=== PATIENT | female | born 1940 | race Caucasian/White ===

== ENCOUNTER 2017-07-27 13:50 | Inpatient (IN) | payer MEDICARE, OTHER ==
[2017-07-27] VITALS (7 sets, daily range): BP systolic 98–136; BP diastolic 56–76
[~2017-07-27] VITALS: Ht 160 cm; Wt 113.6 kg
[~2017-07-27 13:50] MED LIST: ACET-812 PO; ALLO300T8 PO; BISO5TAB7 PO; CALC600T12 PO; CHOL400T57 PO; INSU100C4 SQ; INSU100C7 SQ; NIA500ERT PO; OMEG1CAP81 PO; SOY155CA; WARF5TAB7 PO
[2017-07-27 14:12] LABS: BASOPHILS # (AUTO) 0.1 X10'3 (0-0.2); BASOPHILS % (AUTO) 0.5 % (0-1); EOSINOPHILS # (AUTO) 0.2 X10'3 (0-0.9); HEMATOCRIT 43.3 % (35.0-45.0); HEMOGLOBIN 14.5 g/dl (12.0-16.0); LYMPHOCYTES # (AUTO) 2.5 X10'3 (1.1-4.8); LYMPHOCYTES % (AUTO) 20.2 % (21-51); MEAN CORPUSCULAR HEMOGLOBIN 32.5 PG (27.0-31.0); MEAN CORPUSCULAR HGB CONC 33.5 % (33.0-36.5); MEAN PLATELET VOLUME 8.9 FL (7.4-10.4); MONOCYTES # (AUTO) 0.8 X10'3 (0-0.9); MONOCYTES % (AUTO) 6.5 % (2-12); NEUTROPHILS # (AUTO) 8.6 X10'3 (1.8-7.7); NEUTROPHILS % (AUTO) 70.8 % (42-75); PLATELET COUNT 236 X10'3 (140-440); RED BLOOD COUNT 4.46 X10'6 (4.20-5.60); RED CELL DISTRIBUTION WIDTH 15.2 % (11.5-14.5); WHITE BLOOD COUNT 12.2 X10'3 (4.5-11.0)
[2017-07-27 14:21] LABS: INR 1.1 INR; PARTIAL THROMBOPLASTIN TIME 28 SECONDS (22-32); PROTHROMBIN TIME 11.2 SECONDS (9.0-12.0)
[2017-07-27 14:39] LABS: ALANINE AMINOTRANSFERASE 12 U/L (12-78); ALBUMIN 2.9 G/DL (3.4-5.0); ALBUMIN/GLOBULIN RATIO 0.7 (1.1-1.5); ALKALINE PHOSPHATASE 64 IU/L (46-116); ANION GAP 10 (8-16); ASPARTATE AMINO TRANSFERASE 15 U/L (10-37); BLOOD UREA NITROGEN 26 MG/DL (7-18); BUN/CREATININE RATIO 21.7 (6.6-38.0); CHLORIDE 102 MMOL/L (99-107); GLUCOSE 208 MG/DL (70-104); POTASSIUM 3.8 MMOL/L (3.5-5.1); SODIUM 140 MMOL/L (135-145); TOTAL CARBON DIOXIDE 28.1 MMOL/L (24-32); eGFR 44 ML/MIN
[2017-07-27 14:41] LABS: TOTAL CELLS COUNTED 100
[2017-07-27 14:42] LABS: PLATELET ESTIMATE NORMAL
[2017-07-27 14:49] LABS: ETHANOL < 0.010 GM/DL (0.0-0.010); MAGNESIUM 1.4 MG/DL (1.5-2.4); PHOSPHORUS 3.7 MG/DL (2.3-4.5)
[2017-07-27 14:50] LABS: ACETAMINOPHEN < 2.0 UG/ML (10-30)
[2017-07-27 16:16] LABS: CLARITY,URINE Cloudy (Clear); COLOR,URINE Dark Yellow (Yellow); GLUCOSE, URINE Negative (Neg); KETONES,URINE Trace mg/dl (Neg); LEUKOCYTE ESTERASE ,URINE Large (Neg); NITRITES, URINE Negative (Neg); OCCULT BLOOD,URINE Negative (Neg); PH,URINE 5.5 (4.8-8.0); PROTEIN,URINE 30 mg/dl (Neg)
[2017-07-27 16:17] LABS: UA COLLECTION TYPE FOLEY CATH
[2017-07-27] MEDS ORDERED: mag hydrox/Alum hydrox/simeth 30ml oral suspension PO PRN (16:20)
[2017-07-27] MEDS ORDERED: aspirin 81mg tablet.DR PO ONE (16:20)
[2017-07-27] MEDS ORDERED: acetaminophen 325mg tablet PO PRN ×2 (16:20→18:35)
[2017-07-27] MEDS ORDERED: ondansetron/PF 4mg/2ml inj IV PRN ×2 (16:20→18:35)
[2017-07-27] MEDS ORDERED: magnesium hydroxide 30ml (MOM) UD suspension PO PRN ×2 (16:20→18:35)
[2017-07-27 16:25] LABS: URINE AMPHETAMINE SCREEN NEGATIVE (Neg); URINE BARBITUATE SCREEN NEGATIVE (Neg); URINE BENZODIAZEPINES SCREEN NEGATIVE (Neg); URINE CANNABINOID SCREEN NEGATIVE (Neg); URINE COCAINE SCREEN NEGATIVE (Neg); URINE METHADONE SCREEN NEGATIVE (Neg); URINE OPIATE SCREEN NEGATIVE (Neg); URINE PHENCYCLIDINE SCREEN NEGATIVE (Neg)
[2017-07-27 16:26] LABS: BACTERIA,URINE 4+ /HPF (Neg); MUCUS STRANDS MANY /LPF (Neg); RBC,URINE NONE SEEN /HPF (0-2); SQUAMOUS EPITHELIAL CELL,UR MODERATE /LPF (FEW); WBC,URINE 50-100 /HPF (0-4)
[2017-07-27 16:28] LABS: WBC CLUMPS,URINE FEW /HPF (NEGATIVE)
[2017-07-27] MEDS: normal saline 1000ml 1,000 ML IV SCH (16:51)
[2017-07-27] MEDS ORDERED: DOPamine 400mg/D5W 250ml 250 ML IV ONE (17:18)
[2017-07-27] MEDS ORDERED: NORMAL SALINE IV SCH (17:50)
[2017-07-27] MEDS ORDERED: ISOPROTERENOL IV SCH (17:50)
[2017-07-27] MEDS ORDERED: magnesium 2GM in 50ml NS 50 ML IV PRN (18:35)
[2017-07-27] MEDS ORDERED: Neutra Phos packet PO PRN (18:35)
[2017-07-27] MEDS ORDERED: ipratropium/albuterol 3ml nebule NEB PRN (18:35)
[2017-07-27] MEDS ORDERED: magnesium Cl slow-release 64mg tablet PO PRN (18:35)
[2017-07-27] MEDS ORDERED: potassium Cl 20 mEq SR tablet PO PRN ×2 (18:35)
[2017-07-27] MEDS ORDERED: DOPamine 400mg/D5W 250ml 250 ML IV SCH (18:35)
[2017-07-27] MEDS ORDERED: sodium phosphate inj. 30 MMOL in dextrose 5%-water 250 ML IV PRN (18:35)
[2017-07-27] MEDS ORDERED: sodium phosphate inj. 15 MMOL in dextrose 5%-water 150 ML IV PRN (18:35)
[2017-07-27] MEDS ORDERED: magnesium 4gm in 100ml NS 100 ML IV PRN (18:35)
[2017-07-27 19:46] LABS: OXYGEN SATURATION (MIXED VEN) 69.6 % (60-80); PO2 MIXED VENOUS (TEMP COR) 35.2 mmHg (35-46)
[2017-07-27] MEDS ORDERED: glucagon, human recombinant 1mg kit SUBCUT PRN (20:40)
[2017-07-27] MEDS ORDERED: dextrose 50%-water 50ml dispensing syringe IV PRN ×2 (20:40)
[2017-07-27] MEDS ORDERED: MESSAGE TO PHARMACY PO ONE (20:40)
[2017-07-27] MEDS ORDERED: dextrose ORAL solution 15 GM/59 ML bottle PO PRN ×2 (20:40)
[2017-07-27] MEDS: Insulin Detemir pen SQ SCH (21:00)
[2017-07-27] MEDS: niacin 500mg ER (Niaspan) tablet PO SCH (21:00)
[2017-07-27] MEDS ORDERED: Insulin Detemir pen SQ SCH (21:00)
[2017-07-27 21:15] LABS: HEMOGLOBIN A1C 6.7 % (4.5-6.2)
[2017-07-27] MEDS ORDERED: LIDOcaine 0.5% W/epiNEPHrine 1:200,000 50ml vial IJ ONE (21:25)
[2017-07-27] MEDS ORDERED: midazolam 2 mg/2 ml injection ONE (21:58)
[2017-07-28] VITALS (26 sets, daily range): BP systolic 78–143; BP diastolic 37–85
[2017-07-28] MEDS ORDERED: propofol inj 20 ML IV ONE ×2 (00:21)
[2017-07-28] MEDS ORDERED: ceFAZolin 1000mg inj ONE (00:21)
[2017-07-28] MEDS ORDERED: normal saline 500ml IV soln 500 ML IV ONE (02:10)
[2017-07-28] MEDS: normal saline 1000ml 1,000 ML IV SCH ×3 (02:44→21:00)
[2017-07-28] MEDS: insulin Lispro (HumaLOG) vial - multi-dose SQ SCH ×3 (02:48→21:23)
[2017-07-28 03:02] LABS: BASOPHILS # (AUTO) 0.1 X10'3 (0-0.2); BASOPHILS % (AUTO) 0.4 % (0-1); EOSINOPHILS # (AUTO) 0.2 X10'3 (0-0.9); EOSINOPHILS % (AUTO) 1.3 % (0-6); HEMATOCRIT 37.9 % (35.0-45.0); HEMOGLOBIN 12.8 g/dl (12.0-16.0); LYMPHOCYTES # (AUTO) 1.2 X10'3 (1.1-4.8); LYMPHOCYTES % (AUTO) 7.3 % (21-51); MEAN CORPUSCULAR HEMOGLOBIN 32.9 PG (27.0-31.0); MEAN CORPUSCULAR HGB CONC 33.8 % (33.0-36.5); MEAN CORPUSCULAR VOLUME 97.5 FL (78-98); MEAN PLATELET VOLUME 8.9 FL (7.4-10.4); MONOCYTES # (AUTO) 1.2 X10'3 (0-0.9); MONOCYTES % (AUTO) 7.4 % (2-12); NEUTROPHILS # (AUTO) 13.8 X10'3 (1.8-7.7); NEUTROPHILS % (AUTO) 83.6 % (42-75); PLATELET COUNT 208 X10'3 (140-440); RED BLOOD COUNT 3.89 X10'6 (4.20-5.60); RED CELL DISTRIBUTION WIDTH 15.3 % (11.5-14.5); WHITE BLOOD COUNT 16.5 X10'3 (4.5-11.0)
[2017-07-28 03:27] LABS: ALBUMIN 2.6 G/DL (3.4-5.0); ANION GAP 8 (8-16); BLOOD UREA NITROGEN 31 MG/DL (7-18); BUN/CREATININE RATIO 22.3 (6.6-38.0); CALCIUM 8.3 MG/DL (8.5-10.1); CHLORIDE 103 MMOL/L (99-107); CREATININE 1.39 MG/DL (0.40-0.90); GLUCOSE 234 MG/DL (70-104); POTASSIUM 3.9 MMOL/L (3.5-5.1); SODIUM 141 MMOL/L (135-145); TOTAL CARBON DIOXIDE 30.1 MMOL/L (24-32); eGFR 37 ML/MIN
[2017-07-28] MEDS ORDERED: allopurinol 300 MG tablet PO SCH (08:00)
[2017-07-28] MEDS ORDERED: acetaminophen 325mg tablet PO PRN (08:00)
[2017-07-28] MEDS ORDERED: [UNRECOGNIZED DRUG - OTHER] PO SCH (08:00)
[2017-07-28] MEDS ORDERED: OMEGA 3 FATTY ACIDS PO SCH (08:00)
[2017-07-28] MEDS: acetaminophen 325mg tablet PO PRN (08:07)
[2017-07-28] MEDS: aspirin 81mg tablet.DR PO SCH (08:07)
[2017-07-28] MEDS: enoxaparin 40mg/0.4ml syringe SUBCUT SCH (08:08)
[2017-07-28 08:23] LABS: MAGNESIUM 1.6 MG/DL (1.5-2.4)
[2017-07-28] MEDS: calcium carbonate 500mg chew tablet PO SCH ×2 (09:59→15:07)
[2017-07-28] MEDS ORDERED: BISO10TA PO (10:57)
[2017-07-28] MEDS ORDERED: albumin (Human) 5% 250 ML IV solution IV STA (11:47)
[2017-07-28] MEDS: levoFLOXACIN-Levaquin 500mg/D5 100 ML IV SCH (12:22)
[2017-07-28 12:55] LABS: OXYGEN SATURATION (MIXED VEN) 77.6 % (60-80); PO2 MIXED VENOUS (TEMP COR) 41.9 mmHg (35-46)
[2017-07-28] MEDS ORDERED: DOPamine 400mg/D5W 250ml 250 ML IV SCH ×2 (15:30→18:35)
[2017-07-28] MEDS: hydrocortisone sod succ/PF 100mg/2ml inj. IV SCH (16:44)
[2017-07-28] MEDS: Insulin Detemir pen SQ SCH (21:00)
[2017-07-28] MEDS: niacin 500mg ER (Niaspan) tablet PO SCH ×2 (21:01→21:31)
[2017-07-29] VITALS (24 sets, daily range): BP systolic 121–183; BP diastolic 63–102
[2017-07-29] MEDS: hydrocortisone sod succ/PF 100mg/2ml inj. IV SCH ×3 (00:51→16:55)
[2017-07-29 03:31] LABS: BASOPHILS % (AUTO) 0 % (0-1); EOSINOPHILS # (AUTO) 0.1 X10'3 (0-0.9); EOSINOPHILS % (AUTO) 0.7 % (0-6); HEMATOCRIT 36.4 % (35.0-45.0); LYMPHOCYTES # (AUTO) 0.8 X10'3 (1.1-4.8); LYMPHOCYTES % (AUTO) 7.4 % (21-51); MEAN CORPUSCULAR HEMOGLOBIN 32.5 PG (27.0-31.0); MEAN CORPUSCULAR HGB CONC 32.9 % (33.0-36.5); MEAN CORPUSCULAR VOLUME 98.6 FL (78-98); MEAN PLATELET VOLUME 8.5 FL (7.4-10.4); MONOCYTES # (AUTO) 0.5 X10'3 (0-0.9); MONOCYTES % (AUTO) 4.5 % (2-12); NEUTROPHILS # (AUTO) 9.2 X10'3 (1.8-7.7); NEUTROPHILS % (AUTO) 87.4 % (42-75); PLATELET COUNT 216 X10'3 (140-440); RED BLOOD COUNT 3.69 X10'6 (4.20-5.60); RED CELL DISTRIBUTION WIDTH 15.2 % (11.5-14.5); WHITE BLOOD COUNT 10.6 X10'3 (4.5-11.0)
[2017-07-29 03:46] LABS: ALBUMIN 2.8 G/DL (3.4-5.0); ANION GAP 9 (8-16); BLOOD UREA NITROGEN 29 MG/DL (7-18); BUN/CREATININE RATIO 26.4 (6.6-38.0); CALCIUM 8.2 MG/DL (8.5-10.1); CHLORIDE 106 MMOL/L (99-107); GLUCOSE 194 MG/DL (70-104); POTASSIUM 4.1 MMOL/L (3.5-5.1); SODIUM 141 MMOL/L (135-145); TOTAL CARBON DIOXIDE 26.4 MMOL/L (24-32); eGFR 48 ML/MIN
[2017-07-29] MEDS: normal saline 1000ml 1,000 ML IV SCH (04:57)
[2017-07-29] MEDS: enoxaparin 40mg/0.4ml syringe SUBCUT SCH (08:04)
[2017-07-29] MEDS: calcium carbonate 500mg chew tablet PO SCH ×3 (08:04→16:55)
[2017-07-29] MEDS: levoFLOXACIN-Levaquin 500mg/D5 100 ML IV SCH (08:04)
[2017-07-29] MEDS: LACTOBACILLUS RHAMNOSUS GG 15 billion unit sprinkle caps PO SCH (08:04)
[2017-07-29] MEDS: aspirin 81mg tablet.DR PO SCH (08:04)
[2017-07-29] MEDS: insulin Lispro (HumaLOG) vial - multi-dose SQ SCH ×3 (10:01→20:12)
[2017-07-29] MEDS: amoxicillin 250mg capsule PO SCH ×2 (15:26→20:08)
[2017-07-29] MEDS: acetaminophen 325mg tablet PO PRN (19:39)
[2017-07-29] MEDS: Insulin Detemir pen SQ SCH (21:00)
[2017-07-30] MEDS: hydrocortisone sod succ/PF 100mg/2ml inj. IV SCH ×2 (00:14→07:47)
[2017-07-30 03:00] VITALS: BP 200/114
[2017-07-30 03:45] VITALS: BP 191/104
[2017-07-30] MEDS ORDERED: hydrALAZINE 20mg/ml inj. IV ONE (03:45)
[2017-07-30 05:17] LABS: BASOPHILS % (AUTO) 0.1 % (0-1); EOSINOPHILS # (AUTO) 0.1 X10'3 (0-0.9); HEMATOCRIT 40.7 % (35.0-45.0); HEMOGLOBIN 13.5 g/dl (12.0-16.0); LYMPHOCYTES # (AUTO) 1.1 X10'3 (1.1-4.8); LYMPHOCYTES % (AUTO) 8.3 % (21-51); MEAN CORPUSCULAR HEMOGLOBIN 32.5 PG (27.0-31.0); MEAN CORPUSCULAR HGB CONC 33.2 % (33.0-36.5); MEAN CORPUSCULAR VOLUME 97.8 FL (78-98); MONOCYTES # (AUTO) 0.6 X10'3 (0-0.9); MONOCYTES % (AUTO) 4.2 % (2-12); NEUTROPHILS # (AUTO) 11.6 X10'3 (1.8-7.7); NEUTROPHILS % (AUTO) 86.4 % (42-75); PLATELET COUNT 234 X10'3 (140-440); RED BLOOD COUNT 4.16 X10'6 (4.20-5.60); RED CELL DISTRIBUTION WIDTH 15.2 % (11.5-14.5); WHITE BLOOD COUNT 13.4 X10'3 (4.5-11.0)
[2017-07-30 05:39] LABS: ANION GAP 11 (8-16); BLOOD UREA NITROGEN 29 MG/DL (7-18); BUN/CREATININE RATIO 26.9 (6.6-38.0); CALCIUM 8.7 MG/DL (8.5-10.1); CHLORIDE 107 MMOL/L (99-107); CREATININE 1.08 MG/DL (0.40-0.90); GLUCOSE 178 MG/DL (70-104); POTASSIUM 3.8 MMOL/L (3.5-5.1); SODIUM 140 MMOL/L (135-145); TOTAL CARBON DIOXIDE 22.3 MMOL/L (24-32); eGFR 49 ML/MIN
[2017-07-30 06:00] VITALS: BP 147/98
[2017-07-30] MEDS: LACTOBACILLUS RHAMNOSUS GG 15 billion unit sprinkle caps PO SCH (07:46)
[2017-07-30] MEDS: amoxicillin 250mg capsule PO SCH (07:47)
[2017-07-30] MEDS: calcium carbonate 500mg chew tablet PO SCH ×3 (07:47→14:26)
[2017-07-30] MEDS: aspirin 81mg tablet.DR PO SCH (07:47)
[2017-07-30] MEDS: enoxaparin 40mg/0.4ml syringe SUBCUT SCH (07:48)
[2017-07-30] MEDS ORDERED: bisoprolol 5mg tablet PO SCH (08:00)
[2017-07-30] MEDS: insulin Lispro (HumaLOG) vial - multi-dose SQ SCH ×2 (08:10→13:13)
[2017-07-30] MEDS ORDERED: metoprolol succinate 25mg (24-HOUR) SR. Tablet PO SCH (09:17)
[2017-07-30] MEDS ORDERED: LORazepam 0.5 MG tablet PO PRN (10:10)
[2017-07-30 11:00] VITALS: BP 134/83
== END 2017-07-30 15:15 | DRG 242 ==
LOC: ER 13:50 → ED HOLD 16:16 → CICU 2S 19:09 → PCU 3S 07-29 22:15
PROVIDERS: ADMIT Family Medicine; ATTEND Family Medicine
PROC: 0JH604Z Insertion of Pacemaker, Single Chamber into Chest Subcutaneous Tissue and Fascia, Open Approach (ICD-10-PCS; 2017-07-27)
PROC: 05HM33Z Insertion of Infusion Device into Right Internal Jugular Vein, Percutaneous Approach (ICD-10-PCS; 2017-07-27)
PROC: B543ZZA Ultrasonography of Right Jugular Veins, Guidance (ICD-10-PCS; 2017-07-27)
PROC: 02HK3JZ Insertion of Pacemaker Lead into Right Ventricle, Percutaneous Approach (ICD-10-PCS; principal; 2017-07-27 22:00)
DX: I49.5 Sick sinus syndrome (principal); G93.49 Other encephalopathy; I95.9 Hypotension, unspecified; E11.22 Type 2 diabetes mellitus with diabetic chronic kidney disease; E11.65 Type 2 diabetes mellitus with hyperglycemia; Z68.41 Body mass index [BMI] 40.0-44.9, adult; G93.89 Other specified disorders of brain; I48.2 Chronic atrial fibrillation; N39.0 Urinary tract infection, site not specified; I35.0 Nonrheumatic aortic (valve) stenosis; E86.1 Hypovolemia; B96.20 Unspecified Escherichia coli [E. coli] as the cause of diseases classified elsewhere; G47.30 Sleep apnea, unspecified; G89.4 Chronic pain syndrome; F32.9 Major depressive disorder, single episode, unspecified; I12.9 Hypertensive chronic kidney disease with stage 1 through stage 4 chronic kidney disease, or unspecified chronic kidney disease; E86.0 Dehydration; E66.9 Obesity, unspecified; E78.5 Hyperlipidemia, unspecified; M10.9 Gout, unspecified; M19.90 Unspecified osteoarthritis, unspecified site; N18.9 Chronic kidney disease, unspecified; Z90.710 Acquired absence of both cervix and uterus; Z79.4 Long term (current) use of insulin; Z79.84 Long term (current) use of oral hypoglycemic drugs; Z79.01 Long term (current) use of anticoagulants; Z88.8 Allergy status to other drugs, medicaments and biological substances; Z88.1 Allergy status to other antibiotic agents; Z85.42 Personal history of malignant neoplasm of other parts of uterus; Z86.73 Personal history of transient ischemic attack (TIA), and cerebral infarction without residual deficits; Z80.9 Family history of malignant neoplasm, unspecified; Z82.49 Family history of ischemic heart disease and other diseases of the circulatory system
CPT/HCPCS: 36415; 36556; 70450; 71045; 71048; 76000; 80048; 80053; 80305; 80320; 80329; 81001; 82140; 82533; 82810; 82948; 83036; 83605; 83735; 84100; 84145; 84439; 84443; 84484; 85025; 85610; 85730; 87040; 87070; 87077; 87088; 87186; 93005; 93306; 94760; 97110; 97162; 97530; 99291; A4353; A6213; C1751; C1758; J0360; J0690; J1265; J1650; J1720; J1956; J2250; J2405; J2704; J3490; J7030; P9045

== ENCOUNTER 2017-12-02 10:25 | Emergency (ER) | payer MEDICARE, OTHER ==
[~2017-12-02] VITALS: Ht 152.4 cm; Wt 106.8 kg
[~2017-12-02 10:25] MED LIST changes: +BISO10TA PO; -BISO5TAB7 PO; -INSU100C7 SQ; -WARF5TAB7 PO
[2017-12-02 11:07] LABS: BASOPHILS % (AUTO) 0.2 % (0-1); EOSINOPHILS # (AUTO) 0.3 X10'3 (0-0.9); EOSINOPHILS % (AUTO) 3.2 % (0-6); HEMATOCRIT 45.3 % (35.0-45.0); HEMOGLOBIN 15.2 g/dl (12.0-16.0); LYMPHOCYTES % (AUTO) 20.4 % (21-51); MEAN CORPUSCULAR HEMOGLOBIN 31.6 PG (27.0-31.0); MEAN CORPUSCULAR HGB CONC 33.5 % (33.0-36.5); MEAN CORPUSCULAR VOLUME 94.3 FL (78-98); MEAN PLATELET VOLUME 8.6 FL (7.4-10.4); MONOCYTES # (AUTO) 0.6 X10'3 (0-0.9); MONOCYTES % (AUTO) 6.3 % (2-12); NEUTROPHILS # (AUTO) 6.8 X10'3 (1.8-7.7); NEUTROPHILS % (AUTO) 69.9 % (42-75); PLATELET COUNT 218 X10'3 (140-440); RED CELL DISTRIBUTION WIDTH 16.5 % (11.5-14.5); WHITE BLOOD COUNT 9.7 X10'3 (4.5-11.0)
[2017-12-02 11:16] LABS: PARTIAL THROMBOPLASTIN TIME 27 SECONDS (22-32); PROTHROMBIN TIME 10.8 SECONDS (9.0-12.0)
[2017-12-02 11:21] LABS: ALANINE AMINOTRANSFERASE 24 U/L (12-78); ALBUMIN 3.2 G/DL (3.4-5.0); ALBUMIN/GLOBULIN RATIO 0.9 (1.1-1.5); ALKALINE PHOSPHATASE 64 IU/L (46-116); ANION GAP 4 (8-16); ASPARTATE AMINO TRANSFERASE 21 U/L (10-37); BILIRUBIN,TOTAL 0.5 MG/DL (0.1-1.0); BLOOD UREA NITROGEN 28 MG/DL (7-18); BUN/CREATININE RATIO 23.1 (6.6-38.0); CHLORIDE 102 MMOL/L (99-107); CREATININE 1.21 MG/DL (0.40-0.90); GLUCOSE 186 MG/DL (70-104); SODIUM 138 MMOL/L (135-145); TOTAL CARBON DIOXIDE 31.7 MMOL/L (24-32); TOTAL PROTEIN 6.9 G/DL (6.4-8.2); eGFR 43 ML/MIN
[2017-12-02 12:09] VITALS: BP 137/68
[2017-12-02 12:24] LABS: CLARITY,URINE CLOUDY (Clear); COLOR,URINE YELLOW (Yellow); GLUCOSE, URINE NEGATIVE (Neg); KETONES,URINE NEGATIVE (Neg); LEUKOCYTE ESTERASE ,URINE NEGATIVE (Neg); NITRITES, URINE NEGATIVE (Neg); OCCULT BLOOD,URINE NEGATIVE (Neg); PROTEIN,URINE NEGATIVE (Neg); UA COLLECTION TYPE OTHER; UROBILINOGEN,URINE 0.2 E.U/dL (0.2-1.0)
[2017-12-02 12:31] LABS: BACTERIA,URINE 2+ /HPF (Neg); RBC,URINE 0-2 /HPF (0-2); SQUAMOUS EPITHELIAL CELL,UR MANY /LPF (FEW); WBC,URINE 0-4 /HPF (0-4)
== END 2017-12-02 13:21 | disposition home or self-care (01) ==
LOC: ER 10:26
DX: R42 Dizziness and giddiness (principal); R51 Headache; I10 Essential (primary) hypertension; E11.9 Type 2 diabetes mellitus without complications; M19.90 Unspecified osteoarthritis, unspecified site; G89.29 Other chronic pain; Z86.73 Personal history of transient ischemic attack (TIA), and cerebral infarction without residual deficits; Z98.890 Other specified postprocedural states; Z88.8 Allergy status to other drugs, medicaments and biological substances; Z79.4 Long term (current) use of insulin; Z79.899 Other long term (current) drug therapy; Z90.710 Acquired absence of both cervix and uterus; Z88.6 Allergy status to analgesic agent
CPT/HCPCS: 36415; 71045; 80053; 81001; 84484; 85025; 85610; 85730; 93005; 99285

== ENCOUNTER 2018-01-15 18:36 | Observation (INO) | payer MEDICARE, OTHER ==
[~2018-01-15] VITALS: Ht 160 cm; Wt 106.8 kg
[2018-01-15] MEDS ORDERED: iohexol 350MG/ML 100ml bottle IV ONE (18:42)
[2018-01-15 18:51] LABS: BASOPHILS # (AUTO) 0.1 X10'3 (0-0.2); BASOPHILS % (AUTO) 0.5 % (0-1); EOSINOPHILS # (AUTO) 0.4 X10'3 (0-0.9); EOSINOPHILS % (AUTO) 3.7 % (0-6); HEMATOCRIT 46.4 % (35.0-45.0); HEMOGLOBIN 15.4 g/dl (12.0-16.0); LYMPHOCYTES # (AUTO) 3.2 X10'3 (1.1-4.8); LYMPHOCYTES % (AUTO) 29.4 % (21-51); MEAN CORPUSCULAR HGB CONC 33.1 % (33.0-36.5); MEAN CORPUSCULAR VOLUME 96.7 FL (78-98); MONOCYTES # (AUTO) 0.9 X10'3 (0-0.9); NEUTROPHILS # (AUTO) 6.4 X10'3 (1.8-7.7); NEUTROPHILS % (AUTO) 58.4 % (42-75); PLATELET COUNT 243 X10'3 (140-440); RED CELL DISTRIBUTION WIDTH 16.6 % (11.5-14.5)
[2018-01-15 19:01] LABS: INR 1.1 INR; PARTIAL THROMBOPLASTIN TIME 26 SECONDS (22-32)
[2018-01-15 19:06] LABS: ALANINE AMINOTRANSFERASE 24 U/L (12-78); ALBUMIN 3.3 G/DL (3.4-5.0); ALBUMIN/GLOBULIN RATIO 0.8 (1.1-1.5); ALKALINE PHOSPHATASE 70 IU/L (46-116); ANION GAP 11 (8-16); ASPARTATE AMINO TRANSFERASE 16 U/L (10-37); BILIRUBIN,TOTAL 0.6 MG/DL (0.1-1.0); BLOOD UREA NITROGEN 34 MG/DL (7-18); CALCIUM 9.5 MG/DL (8.5-10.1); CHLORIDE 104 MMOL/L (99-107); CREATININE 1.48 MG/DL (0.40-0.90); GLUCOSE 186 MG/DL (70-104); POTASSIUM 4.4 MMOL/L (3.5-5.1); SODIUM 142 MMOL/L (135-145); TOTAL CARBON DIOXIDE 26.8 MMOL/L (24-32); TOTAL PROTEIN 7.2 G/DL (6.4-8.2); eGFR 34 ML/MIN
[2018-01-15] MEDS ORDERED: aspirin 325mg tablet PO ONE (19:45)
[2018-01-15] MEDS ORDERED: ASPI81TA30 PO (19:52)
[2018-01-15] MEDS ORDERED: MECL12.584 PO (19:53)
[2018-01-15] MEDS ORDERED: heparin 10,000 units/1 ML INJ IV ONE ×2 (20:25→20:45)
[2018-01-15] MEDS ORDERED: ondansetron/PF 4mg/2ml inj IV PRN (20:45)
[2018-01-15] MEDS ORDERED: heparin 10,000 units/1 ML INJ IV PRN (20:45)
[2018-01-15] MEDS ORDERED: magnesium hydroxide 30ml (MOM) UD suspension PO PRN (20:45)
[2018-01-15] MEDS ORDERED: glucagon, human recombinant 1mg kit SUBCUT PRN (20:45)
[2018-01-15] MEDS ORDERED: mag hydrox/Alum hydrox/simeth 30ml oral suspension PO PRN (20:45)
[2018-01-15] MEDS ORDERED: dextrose 50%-water 50ml dispensing syringe IV PRN ×2 (20:45)
[2018-01-15] MEDS ORDERED: insulin Lispro (HumaLOG) vial - multi-dose SQ SCH (20:45)
[2018-01-15] MEDS ORDERED: MESSAGE TO PHARMACY PO ONE (20:45)
[2018-01-15] MEDS ORDERED: dextrose ORAL solution 15 GM/59 ML bottle PO PRN ×2 (20:45)
[2018-01-15] MEDS ORDERED: acetaminophen 325mg tablet PO PRN ×2 (20:45)
[2018-01-15] MEDS ORDERED: niacin 500mg ER (Niaspan) tablet PO SCH (21:00)
[2018-01-15] MEDS ORDERED: insulin glargine (Lantus) pen - multi-dose SQ SCH (21:00)
[2018-01-15] MEDS ORDERED: temazepam 15mg capsule PO PRN (21:00)
[2018-01-15 21:12] LABS: HEMOGLOBIN A1C 6.9 % (4.5-6.2)
[2018-01-15 22:02] VITALS: BP 126/75
[2018-01-16 02:00] VITALS: BP 153/102
[2018-01-16 04:02] LABS: ALBUMIN 3.1 G/DL (3.4-5.0); ANION GAP 11 (8-16); BASOPHILS # (AUTO) 0.1 X10'3 (0-0.2); BASOPHILS % (AUTO) 0.7 % (0-1); BLOOD UREA NITROGEN 33 MG/DL (7-18); BUN/CREATININE RATIO 25.4 (6.6-38.0); CALCIUM 8.8 MG/DL (8.5-10.1); CHLORIDE 106 MMOL/L (99-107); CHOL/HDL RATIO 5.9 (0.00-4.99); CHOLESTEROL 243 MG/DL (0-200); EOSINOPHILS # (AUTO) 0.5 X10'3 (0-0.9); EOSINOPHILS % (AUTO) 4.5 % (0-6); GLUCOSE 172 MG/DL (70-104); HDL CHOLESTEROL 41 MG/DL (35-60); HEMATOCRIT 45.3 % (35.0-45.0); HEMOGLOBIN 15.1 g/dl (12.0-16.0); LDL CHOLESTEROL 185 MG/DL (50-100); LYMPHOCYTES # (AUTO) 3.8 X10'3 (1.1-4.8); LYMPHOCYTES % (AUTO) 33.7 % (21-51); MEAN CORPUSCULAR HEMOGLOBIN 32.2 PG (27.0-31.0); MEAN CORPUSCULAR HGB CONC 33.4 % (33.0-36.5); MEAN CORPUSCULAR VOLUME 96.4 FL (78-98); MEAN PLATELET VOLUME 9.6 FL (7.4-10.4); MONOCYTES % (AUTO) 8.9 % (2-12); NEUTROPHILS # (AUTO) 5.9 X10'3 (1.8-7.7); NEUTROPHILS % (AUTO) 52.2 % (42-75); PLATELET COUNT 222 X10'3 (140-440); RED CELL DISTRIBUTION WIDTH 16.6 % (11.5-14.5); SODIUM 143 MMOL/L (135-145); TOTAL CARBON DIOXIDE 26.1 MMOL/L (24-32); TRIGLYCERIDES 94 MG/DL (20-135); WHITE BLOOD COUNT 11.2 X10'3 (4.5-11.0); eGFR 40 ML/MIN
[2018-01-16 04:09] LABS: POTASSIUM 4.1 MMOL/L (3.5-5.1)
[2018-01-16 06:00] VITALS: BP 147/92
[2018-01-16] MEDS ORDERED: calcium carbonate 500mg tablet PO SCH (07:30)
[2018-01-16 07:32] VITALS: BP 145/90
[2018-01-16] MEDS ORDERED: OMEGA 3 FATTY ACIDS PO SCH (08:00)
[2018-01-16] MEDS ORDERED: bisoprolol 5mg tablet PO SCH (08:00)
[2018-01-16] MEDS ORDERED: allopurinol 300 MG tablet PO SCH (08:00)
[2018-01-16] MEDS ORDERED: [UNRECOGNIZED DRUG - OTHER] PO SCH (08:00)
[2018-01-16 10:00] VITALS: BP 106/59
[2018-01-16] MEDS ORDERED: APIX5TAB3 PO (10:39)
[2018-01-16] MEDS ORDERED: apixaban 5mg tablet PO SCH ×2 (20:00)
[2018-01-16] MEDS ORDERED: heparin, porcine 5000 units/ml vial SQ SCH (20:00)
[2018-01-17] MEDS ORDERED: BISOPROLOL 5 MG PO SCH (08:00)
== END 2018-01-16 11:56 | disposition home or self-care (01) ==
LOC: ER 18:36 → ED HOLD 20:44 → ORTHO 4S 21:30
PROVIDERS: ADMIT Hospitalist; ATTEND Hospitalist
DX: R42 Dizziness and giddiness (principal); G45.9 Transient cerebral ischemic attack, unspecified; I48.91 Unspecified atrial fibrillation; I12.9 Hypertensive chronic kidney disease with stage 1 through stage 4 chronic kidney disease, or unspecified chronic kidney disease; E11.22 Type 2 diabetes mellitus with diabetic chronic kidney disease; N18.9 Chronic kidney disease, unspecified; E78.5 Hyperlipidemia, unspecified; G47.30 Sleep apnea, unspecified; I25.10 Atherosclerotic heart disease of native coronary artery without angina pectoris; E66.01 Morbid (severe) obesity due to excess calories; Z86.73 Personal history of transient ischemic attack (TIA), and cerebral infarction without residual deficits; Z95.0 Presence of cardiac pacemaker; Z90.710 Acquired absence of both cervix and uterus
CPT/HCPCS: 36415; 70450; 70496; 70498; 71045; 80048; 80053; 80061; 82948; 83036; 85025; 85610; 85730; 87070; 93005; 93306; 96365; 96366; 96375; 97116; 97162; 99291; G0378; J1644; J7030; Q9967; 96367; 96368; 99285; J1815

== ENCOUNTER 2018-07-17 13:22 | Emergency (ER) | payer MEDICARE, OTHER ==
[~2018-07-17] VITALS: Ht 160 cm; Wt 94.5 kg
[~2018-07-17 13:22] MED LIST changes: +ASPI81TA30 PO; +MECL12.584 PO
[2018-07-17 14:08] LABS: BASOPHILS % (AUTO) 0.4 % (0-1); EOSINOPHILS % (AUTO) 0.4 % (0-6); HEMATOCRIT 50.8 % (35.0-45.0); HEMOGLOBIN 16.4 g/dl (12.0-16.0); LYMPHOCYTES # (AUTO) 1.6 X10'3 (1.1-4.8); LYMPHOCYTES % (AUTO) 17.4 % (21-51); MEAN CORPUSCULAR HEMOGLOBIN 30.8 PG (27.0-31.0); MEAN CORPUSCULAR HGB CONC 32.3 % (33.0-36.5); MEAN CORPUSCULAR VOLUME 95.4 FL (78-98); MEAN PLATELET VOLUME 8.5 FL (7.4-10.4); MONOCYTES # (AUTO) 0.4 X10'3 (0-0.9); MONOCYTES % (AUTO) 4.6 % (2-12); NEUTROPHILS # (AUTO) 7.4 X10'3 (1.8-7.7); NEUTROPHILS % (AUTO) 77.2 % (42-75); PLATELET COUNT 276 X10'3 (140-440); RED BLOOD COUNT 5.32 X10'6 (4.20-5.60); RED CELL DISTRIBUTION WIDTH 15.1 % (11.5-14.5); WHITE BLOOD COUNT 9.4 X10'3 (4.5-11.0)
[2018-07-17] MEDS ORDERED: SERT25TA5 PO (14:21)
[2018-07-17] MEDS ORDERED: LACTC PO (14:21)
[2018-07-17] MEDS ORDERED: EZET10TA16 PO (14:21)
[2018-07-17] MEDS ORDERED: APIX5TAB3 PO (14:21)
[2018-07-17 14:22] LABS: ALANINE AMINOTRANSFERASE 33 U/L (12-78); ALBUMIN 3.5 G/DL (3.4-5.0); ALBUMIN/GLOBULIN RATIO 0.9 (1.1-1.5); ALKALINE PHOSPHATASE 71 IU/L (46-116); ANION GAP 9 (8-16); ASPARTATE AMINO TRANSFERASE 26 U/L (10-37); BILIRUBIN,TOTAL 0.6 MG/DL (0.1-1.0); BLOOD UREA NITROGEN 25 MG/DL (7-18); BUN/CREATININE RATIO 22.1 (6.6-38.0); CALCIUM 9.3 MG/DL (8.5-10.1); CHLORIDE 102 MMOL/L (99-107); CREATININE 1.13 MG/DL (0.40-0.90); GLUCOSE 169 MG/DL (70-104); POTASSIUM 3.9 MMOL/L (3.5-5.1); SODIUM 140 MMOL/L (135-145); TOTAL CARBON DIOXIDE 28.7 MMOL/L (24-32); TOTAL PROTEIN 7.6 G/DL (6.4-8.2); eGFR 47 ML/MIN
[2018-07-17 14:25] LABS: URINE AMPHETAMINE SCREEN NEGATIVE (Neg); URINE BARBITUATE SCREEN NEGATIVE (Neg); URINE BENZODIAZEPINES SCREEN NEGATIVE (Neg); URINE CANNABINOID SCREEN NEGATIVE (Neg); URINE COCAINE SCREEN NEGATIVE (Neg); URINE METHADONE SCREEN NEGATIVE (Neg); URINE OPIATE SCREEN NEGATIVE (Neg); URINE PHENCYCLIDINE SCREEN NEGATIVE (Neg)
[2018-07-17 14:31] LABS: ETHANOL < 0.010 GM/DL (0.0-0.010)
--- NOTE | 2018-07-17 14:33 | NUR ---
Telepsych consult initiated per MD request.
[2018-07-17 14:36] LABS: CLARITY,URINE CLEAR (Clear); COLOR,URINE YELLOW (Yellow); UA COLLECTION TYPE VOIDED
[2018-07-17 14:37] LABS: GLUCOSE, URINE NEGATIVE (Neg); KETONES,URINE NEGATIVE (Neg); LEUKOCYTE ESTERASE ,URINE NEGATIVE (Neg); NITRITES, URINE NEGATIVE (Neg); OCCULT BLOOD,URINE NEGATIVE (Neg); PROTEIN,URINE TRACE mg/dl (Neg); UROBILINOGEN,URINE 0.2 E.U/dL (0.2-1.0)
[2018-07-17] MEDS ORDERED: dextrose ORAL solution 15 GM/59 ML bottle PO PRN ×2 (14:40)
[2018-07-17] MEDS ORDERED: insulin Lispro (HumaLOG) vial - multi-dose SQ SCH (14:40)
[2018-07-17] MEDS ORDERED: glucagon, human recombinant 1mg kit SUBCUT PRN (14:40)
[2018-07-17] MEDS ORDERED: dextrose 50%-water 50ml dispensing syringe IV PRN ×2 (14:40)
[2018-07-17 14:49] LABS: MUCUS STRANDS FEW /LPF (Neg); SQUAMOUS EPITHELIAL CELL,UR MANY /LPF (FEW)
[2018-07-17 14:51] LABS: BACTERIA,URINE 2+ /HPF (Neg); RBC,URINE 0-2 /HPF (0-2)
[2018-07-17 14:52] LABS: WBC,URINE 0-4 /HPF (0-4)
[2018-07-17 15:04] LABS: HEMOGLOBIN A1C 7.1 % (4.5-6.2)
--- NOTE | 2018-07-17 15:28 | NUR ---
Telepsych consult in process.
[2018-07-17] MEDS ORDERED: haloperidol 1mg tablet PO ONE (16:10)
[2018-07-17 16:41] VITALS: BP 137/70
[2018-07-17] MEDS ORDERED: non-formulary drug (Insulin Aspart (Novolog) 100 UNIT) SQ SCH (17:00)
[2018-07-17] MEDS ORDERED: apixaban 5mg tablet PO SCH (20:00)
[2018-07-18] MEDS ORDERED: acetaminophen 325mg tablet PO SCH (08:00)
[2018-07-18] MEDS ORDERED: aspirin 81mg tab.chew PO SCH (08:00)
[2018-07-18] MEDS ORDERED: atenolol 50mg tablet PO SCH (08:00)
[2018-07-18] MEDS ORDERED: ezetimibe 10mg tablet PO SCH (08:00)
[2018-07-18] MEDS ORDERED: sertraline 25mg tablet PO SCH (08:00)
[2018-07-18] MEDS ORDERED: meclizine 12.5mg tablet PO SCH (08:00)
[2018-07-18] MEDS ORDERED: allopurinol 300 MG tablet PO SCH (08:00)
== END 2018-07-17 16:44 | disposition home or self-care (01) ==
LOC: ER 13:23
DX: R44.3 Hallucinations, unspecified (principal); F32.9 Major depressive disorder, single episode, unspecified; I10 Essential (primary) hypertension; E11.9 Type 2 diabetes mellitus without complications; M19.90 Unspecified osteoarthritis, unspecified site; G89.29 Other chronic pain; M10.9 Gout, unspecified; Z86.73 Personal history of transient ischemic attack (TIA), and cerebral infarction without residual deficits; Z90.710 Acquired absence of both cervix and uterus; Z90.89 Acquired absence of other organs; Z88.1 Allergy status to other antibiotic agents; Z88.8 Allergy status to other drugs, medicaments and biological substances; Z79.82 Long term (current) use of aspirin; Z79.4 Long term (current) use of insulin; Z79.899 Other long term (current) drug therapy
CPT/HCPCS: 36415; 80053; 80305; 80320; 81001; 83036; 84443; 85025; 99284

== ENCOUNTER 2018-08-15 19:55 | Emergency (ER) | payer MEDICARE, OTHER ==
[~2018-08-15] VITALS: Ht 162.6 cm; Wt 95.0 kg
[~2018-08-15 19:55] MED LIST changes: +APIX5TAB3 PO; +EZET10TA16 PO; +LACTC PO; -NIA500ERT PO; +SERT25TA5 PO
[2018-08-15 20:35] LABS: BASOPHILS % (AUTO) 0.2 % (0-1); EOSINOPHILS # (AUTO) 0.3 X10'3 (0-0.9); EOSINOPHILS % (AUTO) 2.5 % (0-6); HEMATOCRIT 44.7 % (35.0-45.0); HEMOGLOBIN 14.9 g/dl (12.0-16.0); LYMPHOCYTES # (AUTO) 1.6 X10'3 (1.1-4.8); LYMPHOCYTES % (AUTO) 13.1 % (21-51); MEAN CORPUSCULAR HEMOGLOBIN 32.1 PG (27.0-31.0); MEAN CORPUSCULAR HGB CONC 33.3 % (33.0-36.5); MEAN CORPUSCULAR VOLUME 96.3 FL (78-98); MONOCYTES # (AUTO) 0.8 X10'3 (0-0.9); MONOCYTES % (AUTO) 6.8 % (2-12); NEUTROPHILS # (AUTO) 9.3 X10'3 (1.8-7.7); NEUTROPHILS % (AUTO) 77.4 % (42-75); PLATELET COUNT 284 X10'3 (140-440); RED BLOOD COUNT 4.64 X10'6 (4.20-5.60); RED CELL DISTRIBUTION WIDTH 15.6 % (11.5-14.5)
--- NOTE | 2018-08-15 20:45 | NUR ---
pt on commode attempting to provide UA
[2018-08-15 20:49] LABS: ALANINE AMINOTRANSFERASE 29 U/L (12-78); ALBUMIN 3.1 G/DL (3.4-5.0); ALBUMIN/GLOBULIN RATIO 0.7 (1.1-1.5); ALKALINE PHOSPHATASE 73 IU/L (46-116); ANION GAP 9 (8-16); ASPARTATE AMINO TRANSFERASE 26 U/L (10-37); BILIRUBIN,TOTAL 0.6 MG/DL (0.1-1.0); BLOOD UREA NITROGEN 27 MG/DL (7-18); BUN/CREATININE RATIO 21.6 (6.6-38.0); CALCIUM 8.8 MG/DL (8.5-10.1); CHLORIDE 101 MMOL/L (99-107); CREATININE 1.25 MG/DL (0.40-0.90); GLUCOSE 195 MG/DL (70-104); POTASSIUM 4.2 MMOL/L (3.5-5.1); PROTHROMBIN TIME 11.1 SECONDS (9.0-12.0); SODIUM 140 MMOL/L (135-145); TOTAL CARBON DIOXIDE 30.4 MMOL/L (24-32); TOTAL PROTEIN 7.3 G/DL (6.4-8.2); eGFR 41 ML/MIN
[2018-08-15 20:50] LABS: INR 1.1 INR
[2018-08-15 21:01] LABS: CLARITY,URINE CLEAR (Clear); COLOR,URINE YELLOW (Yellow); GLUCOSE, URINE NEGATIVE (Neg); KETONES,URINE TRACE mg/dl (Neg); LEUKOCYTE ESTERASE ,URINE NEGATIVE (Neg); NITRITES, URINE NEGATIVE (Neg); OCCULT BLOOD,URINE NEGATIVE (Neg); PH,URINE 6.5 (4.8-8.0); PROTEIN,URINE TRACE mg/dl (Neg)
[2018-08-15 21:04] LABS: UA COLLECTION TYPE CLN CATCH MIDSTREAM
[2018-08-15 21:07] LABS: BACTERIA,URINE 3+ /HPF (Neg); MUCUS STRANDS NONE SEEN /LPF (Neg); RBC,URINE NONE SEEN /HPF (0-2); SQUAMOUS EPITHELIAL CELL,UR MANY /LPF (FEW); WBC,URINE 0-4 /HPF (0-4)
[2018-08-15] MEDS ORDERED: normal saline 1000ML IV soln IVB ONE (21:15)
--- NOTE | 2018-08-15 22:50 | NUR ---
pt ambulated with a walker for gait test. states she feels pretty near to her baseline
[2018-08-15 23:10] VITALS: BP 127/80
--- NOTE | 2018-08-15 23:11 | NUR ---
pt updated on plan of care. MD will order a troponin. pt is breathing w/o difficulty, denies CP
[2018-08-15 23:27] LABS: TROPONIN I < 0.04 NG/ML (0.0-0.05)
== END 2018-08-16 00:09 | disposition home or self-care (01) ==
LOC: ER 19:55
DX: S80.02XA Contusion of left knee, initial encounter (principal); R53.1 Weakness; E66.9 Obesity, unspecified; I10 Essential (primary) hypertension; E11.9 Type 2 diabetes mellitus without complications; M19.90 Unspecified osteoarthritis, unspecified site; G89.29 Other chronic pain; M10.9 Gout, unspecified; Z90.710 Acquired absence of both cervix and uterus; Z95.0 Presence of cardiac pacemaker; Z90.89 Acquired absence of other organs; Z86.73 Personal history of transient ischemic attack (TIA), and cerebral infarction without residual deficits; Z79.899 Other long term (current) drug therapy; Z79.82 Long term (current) use of aspirin; Z79.4 Long term (current) use of insulin; Z88.1 Allergy status to other antibiotic agents; Z88.8 Allergy status to other drugs, medicaments and biological substances; Z88.5 Allergy status to narcotic agent; W18.49XA Other slipping, tripping and stumbling without falling, initial encounter; Y93.89 Activity, other specified; Y92.091 Bathroom in other non-institutional residence as the place of occurrence of the external cause; Y99.9 Unspecified external cause status
CPT/HCPCS: 36415; 70450; 80053; 81001; 84484; 85025; 85610; 93005; 99284; J7030

== ENCOUNTER 2018-09-04 18:33 | Observation (INO) | payer MEDICARE, OTHER ==
[~2018-09-04] VITALS: Ht 161.3 cm; Wt 100.0 kg
--- NOTE | 2018-09-04 18:59 | NUR ---
Grand daughter arrived. They are visiting.
[2018-09-04 19:24] LABS: BASOPHILS % (AUTO) 0.6 % (0-1); EOSINOPHILS # (AUTO) 0.2 X10'3 (0-0.9); EOSINOPHILS % (AUTO) 2.5 % (0-6); HEMATOCRIT 45.8 % (35.0-45.0); HEMOGLOBIN 14.8 g/dl (12.0-16.0); LYMPHOCYTES # (AUTO) 2.3 X10'3 (1.1-4.8); LYMPHOCYTES % (AUTO) 27.7 % (21-51); MEAN CORPUSCULAR HEMOGLOBIN 31.4 PG (27.0-31.0); MEAN CORPUSCULAR HGB CONC 32.2 g/dL (33.0-36.5); MEAN CORPUSCULAR VOLUME 97.4 FL (78-98); MEAN PLATELET VOLUME 8.6 FL (7.4-10.4); MONOCYTES # (AUTO) 0.5 X10'3 (0-0.9); MONOCYTES % (AUTO) 5.5 % (2-12); NEUTROPHILS # (AUTO) 5.2 X10'3 (1.8-7.7); NEUTROPHILS % (AUTO) 63.7 % (42-75); PLATELET COUNT 265 X10'3 (140-440); RED CELL DISTRIBUTION WIDTH 15.1 % (11.5-14.5); WHITE BLOOD COUNT 8.2 X10'3 (4.5-11.0)
[2018-09-04 19:26] LABS: PROTHROMBIN TIME 11.4 SECONDS (9.0-12.0)
[2018-09-04 19:27] LABS: INR 1.1 INR; PARTIAL THROMBOPLASTIN TIME 33 SECONDS (22-32)
[2018-09-04 19:28] LABS: ALANINE AMINOTRANSFERASE 46 U/L (12-78); ALBUMIN 3.2 G/DL (3.4-5.0); ALBUMIN/GLOBULIN RATIO 0.8 (1.1-1.5); ALKALINE PHOSPHATASE 73 IU/L (46-116); ANION GAP 9 (8-16); ASPARTATE AMINO TRANSFERASE 41 U/L (10-37); BILIRUBIN,TOTAL 0.7 MG/DL (0.1-1.0); BLOOD UREA NITROGEN 25 MG/DL (7-18); CHLORIDE 104 MMOL/L (99-107); CREATININE 1.04 MG/DL (0.40-0.90); GLUCOSE 145 MG/DL (70-104); SODIUM 143 MMOL/L (135-145); TOTAL CARBON DIOXIDE 30.3 MMOL/L (24-32); TOTAL PROTEIN 7.1 G/DL (6.4-8.2); eGFR 51 ML/MIN
[2018-09-04] MEDS ORDERED: SERT25TA PO (21:16)
[2018-09-04] MEDS ORDERED: acetaminophen 325mg tablet PO PRN (21:45)
[2018-09-04] MEDS ORDERED: magnesium hydroxide 30ml (MOM) UD suspension PO PRN (21:45)
[2018-09-04] MEDS ORDERED: mag hydrox/Alum hydrox/simeth 30ml oral suspension PO PRN (21:45)
[2018-09-04] MEDS ORDERED: ondansetron/PF 4mg/2ml inj IV PRN (21:45)
[2018-09-04] MEDS ORDERED: metoprolol tartrate 1mg/ml inj IV PRN (21:55)
[2018-09-04] MEDS ORDERED: regadenoson 0.4mg/5ml syringe IV ONE (21:55)
[2018-09-04] MEDS ORDERED: aminophylline 250mg/10ml inj. IV PRN (21:55)
[2018-09-04] MEDS ORDERED: nitroGLYCERIN 0.4mg SUBLingual tab SL PRN (21:55)
[2018-09-04] MEDS ORDERED: glucagon, human recombinant 1mg kit SUBCUT PRN (22:50)
[2018-09-04] MEDS ORDERED: dextrose 50%-water 50ml dispensing syringe IV PRN ×2 (22:50)
[2018-09-04] MEDS ORDERED: insulin Lispro (HumaLOG) vial - multi-dose SQ SCH (22:50)
[2018-09-04] MEDS ORDERED: MESSAGE TO PHARMACY PO ONE (22:50)
[2018-09-04] MEDS ORDERED: dextrose ORAL solution 15 GM/59 ML bottle PO PRN ×2 (22:50)
--- NOTE | 2018-09-04 23:06 | NUR ---
BEDSIDE COMMODE GIVEN GRAND DAUGHTER AT THE BS.
--- NOTE | 2018-09-04 23:50 | NUR ---
Received report from VERO Khalil. Awaiting patient arrival to the unit.
--- NOTE | 2018-09-04 23:55 | NUR ---
Patient arrived to the floor via gurney. Placed in room 344A. Patient is awake and alert on room air, in no apparent distress. Visitor at bedside. Call light and items of frequent use within reach. Will continue to monitor.
[2018-09-05] VITALS (14 sets, daily range): BP systolic 104–170; BP diastolic 63–85
--- NOTE | 2018-09-05 00:45 | NUR ---
Attempted to DART patient, verbalized "I like to get some sleep. I had a long day." Will attempt later.
--- NOTE | 2018-09-05 06:15 | NUR ---
Patient in room ANNY 344. I have received report from raya PHAM and had the opportunity to ask questions and assume patient care.Pt in bed low locked call light in reach
[2018-09-05] MEDS ORDERED: non-formulary drug (Insulin Aspart (Novolog) 100 UNIT) SQ SCH (07:00)
[2018-09-05] MEDS: nystatin 15 GM powder TP SCH ×2 (07:57→14:10)
[2018-09-05] MEDS ORDERED: OMEGA-3/DHA/EPA/FISH OIL 1 EACH CAPSULE.DR PO SCH (08:00)
[2018-09-05] MEDS ORDERED: sertraline 25mg tablet PO SCH (08:00)
[2018-09-05] MEDS ORDERED: acetaminophen 160mg/5ml oral suspension PO SCH (08:00)
[2018-09-05] MEDS ORDERED: metoprolol tartrate 25mg tablet PO SCH (08:00)
[2018-09-05] MEDS ORDERED: apixaban 5mg tablet PO SCH (08:00)
[2018-09-05] MEDS ORDERED: bisoprolol 5mg tablet PO SCH (08:00)
[2018-09-05] MEDS ORDERED: allopurinol 300 MG tablet PO SCH (08:00)
[2018-09-05] MEDS ORDERED: meclizine 12.5mg tablet PO SCH (08:00)
[2018-09-05] MEDS ORDERED: aspirin 81mg tab.chew PO SCH (08:00)
[2018-09-05] MEDS ORDERED: ezetimibe 10mg tablet PO SCH (08:00)
[2018-09-05] MEDS ORDERED: aminophylline inj. 10 ML IV ONE (09:32)
[2018-09-05] MEDS ORDERED: regadenoson 0.4mg/5ml syringe IV ONE ×2 (09:32→09:35)
--- NOTE | 2018-09-05 14:12 | NUR ---
DM Consult: A1C 7.3. Pt admit w/ chest pain hx dementia, CVA and baseline dysphagia per EMR. Pt not appropriate for DM ed at this time given hx; A1C good given age. Addendum: 09/05/18 at [address] Amended: Links added.
--- NOTE | 2018-09-05 15:50 | NUR ---
Patient discharged with family. All belongings sent home.No new medications. IV removed. patient wheeled down to lobby by staff
[2018-09-05] MEDS ORDERED: insulin glargine (Lantus) pen - multi-dose SQ SCH (21:00)
== END 2018-09-05 15:50 | disposition home or self-care (01) ==
LOC: ER 18:33 → INTOOBSV 21:45 → ED HOLD 21:45 → SUR 3N 23:55 → UNDODISIN 09-05 15:50
PROVIDERS: ADMIT Internal Medicine; ATTEND Family Medicine
DX: R07.89 Other chest pain (principal); E11.9 Type 2 diabetes mellitus without complications; I10 Essential (primary) hypertension; J18.9 Pneumonia, unspecified organism; G47.30 Sleep apnea, unspecified; M19.90 Unspecified osteoarthritis, unspecified site; G89.29 Other chronic pain; M10.9 Gout, unspecified; F32.9 Major depressive disorder, single episode, unspecified; E78.00 Pure hypercholesterolemia, unspecified; Z95.0 Presence of cardiac pacemaker; Z86.73 Personal history of transient ischemic attack (TIA), and cerebral infarction without residual deficits
CPT/HCPCS: 36415; 71045; 78452; 80053; 82948; 83036; 84484; 85025; 85610; 85730; 87070; 93005; 93017; 96374; 99285; A9500; G0378; J0280; J8597; J1815

== ENCOUNTER 2018-10-28 17:55 | Observation (INO) | payer MEDICARE, OTHER ==
[~2018-10-28] VITALS: Ht 160 cm; Wt 94.0 kg
[2018-10-28 18:54] LABS: BASOPHILS # (AUTO) 0.1 X10'3 (0-0.2); BASOPHILS % (AUTO) 1.1 % (0-1); EOSINOPHILS # (AUTO) 0.4 X10'3 (0-0.9); EOSINOPHILS % (AUTO) 4.5 % (0-6); HEMOGLOBIN 15.1 g/dl (12.0-16.0); MEAN CORPUSCULAR HEMOGLOBIN 33.3 PG (27.0-31.0); MEAN CORPUSCULAR HGB CONC 34.3 g/dL (33.0-36.5); MEAN PLATELET VOLUME 8.5 FL (7.4-10.4); MONOCYTES # (AUTO) 0.6 X10'3 (0-0.9); MONOCYTES % (AUTO) 6.5 % (2-12); NEUTROPHILS # (AUTO) 5.7 X10'3 (1.8-7.7); NEUTROPHILS % (AUTO) 64.9 % (42-75); PLATELET COUNT 229 X10'3 (140-440); RED BLOOD COUNT 4.53 X10'6 (4.20-5.60); RED CELL DISTRIBUTION WIDTH 15.6 % (11.5-14.5); WHITE BLOOD COUNT 8.7 X10'3 (4.5-11.0)
[2018-10-28 19:04] LABS: INR 1.1 INR; PARTIAL THROMBOPLASTIN TIME 34 SECONDS (22-32); PROTHROMBIN TIME 11.4 SECONDS (9.0-12.0)
[2018-10-28 19:07] LABS: ALANINE AMINOTRANSFERASE 24 U/L (12-78); ALBUMIN 3.3 G/DL (3.4-5.0); ALBUMIN/GLOBULIN RATIO 0.9 (1.1-1.5); ALKALINE PHOSPHATASE 65 IU/L (46-116); ANION GAP 6 (8-16); ASPARTATE AMINO TRANSFERASE 19 U/L (10-37); BILIRUBIN,TOTAL 0.5 MG/DL (0.1-1.0); BLOOD UREA NITROGEN 30 MG/DL (7-18); BUN/CREATININE RATIO 22.9 (6.6-38.0); CHLORIDE 103 MMOL/L (99-107); CREATININE 1.31 MG/DL (0.40-0.90); GLUCOSE 205 MG/DL (70-104); POTASSIUM 4.3 MMOL/L (3.5-5.1); SODIUM 138 MMOL/L (135-145); TOTAL CARBON DIOXIDE 28.9 MMOL/L (24-32); TOTAL PROTEIN 7.1 G/DL (6.4-8.2); eGFR 39 ML/MIN
[2018-10-28] MEDS ORDERED: normal saline 1000ml 1,000 ML IV ONE (20:15)
[2018-10-28 20:57] LABS: CLARITY,URINE SLIGHTLY CLOUDY (Clear); COLOR,URINE YELLOW (Yellow); GLUCOSE, URINE NEGATIVE (Neg); KETONES,URINE TRACE mg/dl (Neg); LEUKOCYTE ESTERASE ,URINE NEGATIVE (Neg); NITRITES, URINE NEGATIVE (Neg); OCCULT BLOOD,URINE NEGATIVE (Neg); PROTEIN,URINE TRACE mg/dl (Neg); UROBILINOGEN,URINE 0.2 E.U/dL (0.2-1.0)
[2018-10-28 21:10] LABS: UA COLLECTION TYPE CLN CATCH MIDSTREAM
--- NOTE | 2018-10-28 21:16 | NUR ---
pt getting pacemaker interogated now. and grandaughter at bedside. current vss.
[2018-10-28 21:24] LABS: BACTERIA,URINE 3+ /HPF (Neg); RBC,URINE NONE SEEN /HPF (0-2); SQUAMOUS EPITHELIAL CELL,UR MANY /LPF (FEW); WBC,URINE 0-4 /HPF (0-4)
[2018-10-28 21:25] LABS: MUCUS STRANDS FEW /LPF (Neg)
[2018-10-28] MEDS ORDERED: ACET-2615 PO (21:28)
--- NOTE | 2018-10-28 21:41 | NUR ---
dr. barney talking with pacemaker interrogation tech on the phone. md reports to me that were no arrythmias noted and that pt is miladis paced 99% of the time. pt to be admitted and awaiting hospialist. md request a gait test to assess current dizziness.
[2018-10-28] MEDS ORDERED: mag hydrox/Alum hydrox/simeth 30ml oral suspension PO PRN (22:55)
[2018-10-28] MEDS ORDERED: dextrose 50%-water 50ml dispensing syringe IV PRN ×2 (22:55)
[2018-10-28] MEDS ORDERED: MESSAGE TO PHARMACY PO ONE (22:55)
[2018-10-28] MEDS ORDERED: ondansetron/PF 4mg/2ml inj IV PRN (22:55)
[2018-10-28] MEDS ORDERED: glucagon, human recombinant 1mg kit SUBCUT PRN (22:55)
[2018-10-28] MEDS ORDERED: insulin Lispro (HumaLOG) vial - multi-dose SQ SCH (22:55)
[2018-10-28] MEDS ORDERED: meclizine 12.5mg tablet PO PRN (22:55)
[2018-10-28] MEDS ORDERED: dextrose ORAL solution 15 GM/59 ML bottle PO PRN ×2 (22:55)
[2018-10-28] MEDS ORDERED: acetaminophen 325mg tablet PO PRN (22:55)
[2018-10-28] MEDS ORDERED: magnesium hydroxide 30ml (MOM) UD suspension PO PRN (22:55)
[2018-10-28] MEDS: OMEGA-3/DHA/EPA/FISH OIL 1 EACH CAPSULE.DR PO SCH (23:05)
--- NOTE | 2018-10-28 23:39 | NUR ---
PATIENT REPORT RECEIVED FROM VELMA PHAM.
[2018-10-29 01:17] LABS: CHLORIDE 107 MMOL/L (99-107); GLUCOSE 130 MG/DL (70-104); POTASSIUM 3.8 MMOL/L (3.5-5.1); SODIUM 143 MMOL/L (135-145); TOTAL CARBON DIOXIDE 27.3 MMOL/L (24-32)
[2018-10-29 01:18] LABS: ANION GAP 9 (8-16); BLOOD UREA NITROGEN 32 MG/DL (7-18); BUN/CREATININE RATIO 26.4 (6.6-38.0); CALCIUM 8.7 MG/DL (8.5-10.1); CHOL/HDL RATIO 7.2 (0.00-4.99); CHOLESTEROL 201 MG/DL (0-200); CREATININE 1.21 MG/DL (0.40-0.90); HDL CHOLESTEROL 28 MG/DL (35-60); LDL CHOLESTEROL 132 MG/DL (50-100); TRIGLYCERIDES 197 MG/DL (20-135); eGFR 43 ML/MIN
[2018-10-29] MEDS: normal saline 1000ml 1,000 ML IV SCH ×2 (01:42→12:53)
[2018-10-29 06:00] VITALS: BP 166/98
--- NOTE | 2018-10-29 06:17 | NUR ---
PATIENT REPORT GIVEN TO ANASTASIIA PHAM.
--- NOTE | 2018-10-29 06:30 | NUR ---
Patient in room ORTHO 4011. I have received report from Arline Anderson RN and had the opportunity to ask questions and assume patient care.
[2018-10-29 07:35] LABS: BASOPHILS # (AUTO) 0.1 X10'3 (0-0.2); BASOPHILS % (AUTO) 0.7 % (0-1); EOSINOPHILS # (AUTO) 0.4 X10'3 (0-0.9); EOSINOPHILS % (AUTO) 4.3 % (0-6); HEMATOCRIT 43.9 % (35.0-45.0); HEMOGLOBIN 14.9 g/dl (12.0-16.0); LYMPHOCYTES # (AUTO) 2.6 X10'3 (1.1-4.8); LYMPHOCYTES % (AUTO) 31.4 % (21-51); MEAN CORPUSCULAR HGB CONC 33.9 g/dL (33.0-36.5); MEAN CORPUSCULAR VOLUME 97.2 FL (78-98); MEAN PLATELET VOLUME 8.7 FL (7.4-10.4); MONOCYTES # (AUTO) 0.5 X10'3 (0-0.9); MONOCYTES % (AUTO) 6.6 % (2-12); NEUTROPHILS # (AUTO) 4.7 X10'3 (1.8-7.7); PLATELET COUNT 231 X10'3 (140-440); RED BLOOD COUNT 4.52 X10'6 (4.20-5.60); RED CELL DISTRIBUTION WIDTH 15.9 % (11.5-14.5); WHITE BLOOD COUNT 8.2 X10'3 (4.5-11.0)
[2018-10-29 07:47] LABS: ALBUMIN 3.4 G/DL (3.4-5.0); ANION GAP 10 (8-16); BLOOD UREA NITROGEN 27 MG/DL (7-18); BUN/CREATININE RATIO 24.5 (6.6-38.0); CALCIUM 9.1 MG/DL (8.5-10.1); CHLORIDE 105 MMOL/L (99-107); GLUCOSE 138 MG/DL (70-104); POTASSIUM 3.6 MMOL/L (3.5-5.1); SODIUM 141 MMOL/L (135-145); eGFR 48 ML/MIN
[2018-10-29] MEDS: OMEGA-3/DHA/EPA/FISH OIL 1 EACH CAPSULE.DR PO SCH (07:52)
[2018-10-29] MEDS: calcium carbonate 500mg tablet PO SCH (07:52)
[2018-10-29] MEDS: acetaminophen 325mg tablet PO SCH (07:52)
[2018-10-29] MEDS: sertraline 25mg tablet PO SCH (07:52)
[2018-10-29] MEDS: allopurinol 300 MG tablet PO SCH (07:52)
[2018-10-29] MEDS: apixaban 5mg tablet PO SCH ×2 (07:53→20:43)
[2018-10-29] MEDS: lactobacillus rhamnosus 10,000 MMU CELLS/CAPSULE PO SCH ×2 (07:53→20:00)
[2018-10-29] MEDS: ezetimibe 10mg tablet PO SCH (07:53)
[2018-10-29] MEDS: aspirin 81mg tab.chew PO SCH (07:53)
[2018-10-29] MEDS ORDERED: bisoprolol 5mg tablet PO SCH (08:00)
[2018-10-29 10:00] VITALS: BP_SYST 128; BP_SYST 135; BP_SYST 149; BP_SYST 163; BP_DIAS 75; BP_DIAS 80; BP_DIAS 87; BP_DIAS 89
[2018-10-29] MEDS ORDERED: atenolol 50mg tablet PO ONE (10:15)
--- NOTE | 2018-10-29 10:18 | NUR ---
Paged Dr. Chavarria PAGER ID: [phone] MESSAGE: [phone] [phone]. Re: Maribel Armstrong. MRI called, unable to do MRI today b/c pacemaker. Need rep to put in MRI mode, and ACLS nurse for exam. Possible Wednesday
--- NOTE | 2018-10-29 17:19 | NUR ---
DM consult: Pt admit w/ hx dementia A1C 7.3 and not appropriate for ed at this time. Addendum: 10/29/18 at [address] Amended: Links added.
[2018-10-29 18:00] VITALS: BP 163/104
[2018-10-29 18:21] LABS: HEMOGLOBIN A1C 6.8 % (4.5-6.2)
--- NOTE | 2018-10-29 18:25 | NUR ---
Problems reprioritized. Patient report given, questions answered & plan of care reviewed with Malachi PHAM.
--- NOTE | 2018-10-29 19:00 | NUR ---
Patient in room ORTHO 4009. I have received report from Nemo PHAM and had the opportunity to ask questions and assume patient care.
--- NOTE | 2018-10-29 19:30 | NUR ---
Pt moved to room 4009A PT concerned about being left alone due to bad experience is the past while in the hospital. She is now closer to the nurse's station and had a room mate.
[2018-10-29] MEDS: insulin glargine (Lantus) pen - multi-dose SQ SCH (21:00)
[2018-10-29 22:57] VITALS: BP_SYST 165; BP_SYST 180; BP_SYST 181; BP_DIAS 103; BP_DIAS 97
[2018-10-29 22:58] VITALS: BP 170/99
[2018-10-30] VITALS (8 sets, daily range): BP systolic 122–157; BP diastolic 63–98
--- NOTE | 2018-10-30 06:37 | NUR ---
Report received from Malachi PHAM
--- NOTE | 2018-10-30 06:39 | NUR ---
RECEIVED REPORT FROM CANDY PHAM
[2018-10-30 07:38] LABS: BASOPHILS # (AUTO) 0.1 X10'3 (0-0.2); BASOPHILS % (AUTO) 0.8 % (0-1); EOSINOPHILS # (AUTO) 0.3 X10'3 (0-0.9); EOSINOPHILS % (AUTO) 3.5 % (0-6); HEMATOCRIT 42.1 % (35.0-45.0); HEMOGLOBIN 13.9 g/dl (12.0-16.0); LYMPHOCYTES # (AUTO) 2.4 X10'3 (1.1-4.8); LYMPHOCYTES % (AUTO) 28.1 % (21-51); MEAN CORPUSCULAR HEMOGLOBIN 32.3 PG (27.0-31.0); MEAN CORPUSCULAR HGB CONC 33.1 g/dL (33.0-36.5); MEAN CORPUSCULAR VOLUME 97.6 FL (78-98); MEAN PLATELET VOLUME 8.7 FL (7.4-10.4); MONOCYTES # (AUTO) 0.8 X10'3 (0-0.9); MONOCYTES % (AUTO) 8.7 % (2-12); NEUTROPHILS # (AUTO) 5.1 X10'3 (1.8-7.7); NEUTROPHILS % (AUTO) 58.9 % (42-75); PLATELET COUNT 215 X10'3 (140-440); RED BLOOD COUNT 4.31 X10'6 (4.20-5.60); RED CELL DISTRIBUTION WIDTH 15.7 % (11.5-14.5); WHITE BLOOD COUNT 8.6 X10'3 (4.5-11.0)
[2018-10-30 07:48] LABS: ANION GAP 9 (8-16); BLOOD UREA NITROGEN 24 MG/DL (7-18); BUN/CREATININE RATIO 27.6 (6.6-38.0); CALCIUM 8.9 MG/DL (8.5-10.1); CHLORIDE 108 MMOL/L (99-107); CREATININE 0.87 MG/DL (0.40-0.90); GLUCOSE 131 MG/DL (70-104); POTASSIUM 3.5 MMOL/L (3.5-5.1); SODIUM 141 MMOL/L (135-145); TOTAL CARBON DIOXIDE 23.9 MMOL/L (24-32); eGFR 63 ML/MIN
--- NOTE | 2018-10-30 08:14 | NUR ---
PATIENT REFUSED HER MEDICATION AND TO HAVE BLOOD SUGAR TAKEN. PATIENT STATED "GET OUT AND LEAVE ME ALONE" WILL LET DR. KITCHEN KNOW.
--- NOTE | 2018-10-30 08:15 | NUR ---
Woke patient up for morning meds, blood glucose, and breakfast. She refused all medications and blood glucose monitor. "No, leave me alone."
[2018-10-30] MEDS: lactobacillus rhamnosus 10,000 MMU CELLS/CAPSULE PO SCH ×2 (11:03→19:23)
[2018-10-30] MEDS: apixaban 5mg tablet PO SCH ×2 (11:03→19:23)
[2018-10-30] MEDS: ezetimibe 10mg tablet PO SCH (11:03)
[2018-10-30] MEDS: sertraline 25mg tablet PO SCH (11:03)
[2018-10-30] MEDS: aspirin 81mg tab.chew PO SCH (11:03)
[2018-10-30] MEDS: OMEGA-3/DHA/EPA/FISH OIL 1 EACH CAPSULE.DR PO SCH (11:03)
[2018-10-30] MEDS: atenolol 50mg tablet PO SCH (11:04)
[2018-10-30] MEDS: calcium carbonate 500mg tablet PO SCH (11:04)
[2018-10-30] MEDS: acetaminophen 325mg tablet PO SCH (11:08)
[2018-10-30] MEDS: allopurinol 300 MG tablet PO SCH (11:09)
--- NOTE | 2018-10-30 11:16 | NUR ---
patient only wanted 2 of 3 ordered tylenol
[2018-10-30] MEDS ORDERED: normal saline 1000ml 1,000 ML IV SCH (13:20)
--- NOTE | 2018-10-30 18:05 | NUR ---
REPORT GIVEN TO AMELIE PHAM
--- NOTE | 2018-10-30 19:00 | NUR ---
REPORT REC'D FROM VERO SAL.
[2018-10-30] MEDS: insulin glargine (Lantus) pen - multi-dose SQ SCH (21:00)
--- NOTE | 2018-10-31 05:17 | NUR ---
TYLENOL 650MG WASTED R/T PT HAS ORDER FOR 975MG AT 0800. WILL WAIT FOR MORNING MED PASS AND TRY SOME REPOSITIONING AT THIS TIME.
[2018-10-31 06:00] VITALS: BP 160/92
--- NOTE | 2018-10-31 06:52 | NUR ---
REPORT GIVEN TO VERO FORD.
[2018-10-31 07:00] VITALS: BP_SYST 102; BP_SYST 119; BP_SYST 94; BP_DIAS 61; BP_DIAS 69; BP_DIAS 74
[2018-10-31] MEDS: lactobacillus rhamnosus 10,000 MMU CELLS/CAPSULE PO SCH (07:26)
[2018-10-31] MEDS: atenolol 50mg tablet PO SCH (07:26)
[2018-10-31] MEDS: calcium carbonate 500mg tablet PO SCH (07:26)
[2018-10-31] MEDS: OMEGA-3/DHA/EPA/FISH OIL 1 EACH CAPSULE.DR PO SCH (07:26)
[2018-10-31] MEDS: apixaban 5mg tablet PO SCH (07:26)
[2018-10-31] MEDS: acetaminophen 325mg tablet PO SCH (07:27)
[2018-10-31] MEDS: ezetimibe 10mg tablet PO SCH (07:27)
[2018-10-31] MEDS: sertraline 25mg tablet PO SCH (07:28)
[2018-10-31] MEDS: aspirin 81mg tab.chew PO SCH (07:28)
[2018-10-31] MEDS: allopurinol 300 MG tablet PO SCH (07:29)
[2018-10-31 07:30] LABS: BASOPHILS # (AUTO) 0.1 X10'3 (0-0.2); BASOPHILS % (AUTO) 0.9 % (0-1); EOSINOPHILS # (AUTO) 0.4 X10'3 (0-0.9); EOSINOPHILS % (AUTO) 4.7 % (0-6); HEMATOCRIT 40.8 % (35.0-45.0); HEMOGLOBIN 13.6 g/dl (12.0-16.0); LYMPHOCYTES # (AUTO) 2.6 X10'3 (1.1-4.8); LYMPHOCYTES % (AUTO) 33.1 % (21-51); MEAN CORPUSCULAR HEMOGLOBIN 32.7 PG (27.0-31.0); MEAN CORPUSCULAR HGB CONC 33.3 g/dL (33.0-36.5); MEAN CORPUSCULAR VOLUME 98.3 FL (78-98); MEAN PLATELET VOLUME 8.9 FL (7.4-10.4); MONOCYTES # (AUTO) 0.7 X10'3 (0-0.9); MONOCYTES % (AUTO) 8.8 % (2-12); NEUTROPHILS # (AUTO) 4.2 X10'3 (1.8-7.7); NEUTROPHILS % (AUTO) 52.5 % (42-75); PLATELET COUNT 210 X10'3 (140-440); RED BLOOD COUNT 4.15 X10'6 (4.20-5.60); RED CELL DISTRIBUTION WIDTH 15.9 % (11.5-14.5); WHITE BLOOD COUNT 7.9 X10'3 (4.5-11.0)
[2018-10-31 07:32] LABS: ALBUMIN 2.8 G/DL (3.4-5.0); ANION GAP 8 (8-16); BLOOD UREA NITROGEN 23 MG/DL (7-18); BUN/CREATININE RATIO 23.2 (6.6-38.0); CALCIUM 8.9 MG/DL (8.5-10.1); CHLORIDE 107 MMOL/L (99-107); CREATININE 0.99 MG/DL (0.40-0.90); GLUCOSE 113 MG/DL (70-104); POTASSIUM 3.5 MMOL/L (3.5-5.1); SODIUM 142 MMOL/L (135-145); TOTAL CARBON DIOXIDE 27.5 MMOL/L (24-32); eGFR 54 ML/MIN
[2018-10-31 10:00] VITALS: BP 94/61
--- NOTE | 2018-10-31 16:20 | NUR ---
Patient was unable to leave until granddaughter got off of work since the lives 50 minutes away and was sick. Patients IV was removed, tele disconnected and discharge instructions given before discharge.
== END 2018-10-31 16:40 | disposition home or self-care (01) ==
LOC: ER 17:56 → ORTHO 4S 10-29 00:15 → INTOOBSV 10-29 00:15 → ORTHO 4S 10-29 20:38
PROVIDERS: ADMIT Hospitalist; ATTEND Internal Medicine
DX: R42 Dizziness and giddiness (principal); I10 Essential (primary) hypertension; G89.29 Other chronic pain; I49.9 Cardiac arrhythmia, unspecified; G47.30 Sleep apnea, unspecified; M19.90 Unspecified osteoarthritis, unspecified site; F32.9 Major depressive disorder, single episode, unspecified; M10.9 Gout, unspecified; J18.9 Pneumonia, unspecified organism; E78.5 Hyperlipidemia, unspecified; I48.0 Paroxysmal atrial fibrillation; E11.65 Type 2 diabetes mellitus with hyperglycemia; Z86.73 Personal history of transient ischemic attack (TIA), and cerebral infarction without residual deficits
CPT/HCPCS: 36415; 70450; 71045; 80048; 80053; 80061; 81001; 82948; 83036; 83880; 84484; 85025; 85610; 85730; 87070; 93005; 96360; 96361; 97116; 97161; 97530; 99284; G0378; J7030; 99285; J1815

== ENCOUNTER 2018-11-11 01:10 | Emergency (ER) | payer MEDICARE ==
[~2018-11-11] VITALS: Ht 160 cm; Wt 100.0 kg
[~2018-11-11 01:10] MED LIST changes: -MECL12.584 PO
[2018-11-11 02:01] LABS: BASOPHILS # (AUTO) 0.1 X10'3 (0-0.2); BASOPHILS % (AUTO) 1.2 % (0-1); EOSINOPHILS # (AUTO) 0.3 X10'3 (0-0.9); EOSINOPHILS % (AUTO) 2.4 % (0-6); HEMOGLOBIN 14.5 g/dl (12.0-16.0); LYMPHOCYTES # (AUTO) 2.9 X10'3 (1.1-4.8); LYMPHOCYTES % (AUTO) 26.9 % (21-51); MEAN CORPUSCULAR HEMOGLOBIN 32.6 PG (27.0-31.0); MEAN CORPUSCULAR HGB CONC 33.6 g/dL (33.0-36.5); MEAN PLATELET VOLUME 8.5 FL (7.4-10.4); MONOCYTES % (AUTO) 9.2 % (2-12); NEUTROPHILS # (AUTO) 6.5 X10'3 (1.8-7.7); NEUTROPHILS % (AUTO) 60.3 % (42-75); PLATELET COUNT 229 X10'3 (140-440); RED BLOOD COUNT 4.44 X10'6 (4.20-5.60); RED CELL DISTRIBUTION WIDTH 15.6 % (11.5-14.5); WHITE BLOOD COUNT 10.7 X10'3 (4.5-11.0)
[2018-11-11 02:11] LABS: ALANINE AMINOTRANSFERASE 37 U/L (12-78); ALBUMIN 3.3 G/DL (3.4-5.0); ALBUMIN/GLOBULIN RATIO 0.9 (1.1-1.5); ALKALINE PHOSPHATASE 59 IU/L (46-116); ANION GAP 7 (8-16); ASPARTATE AMINO TRANSFERASE 26 U/L (10-37); BILIRUBIN,TOTAL 0.5 MG/DL (0.1-1.0); BLOOD UREA NITROGEN 31 MG/DL (7-18); BUN/CREATININE RATIO 25.6 (6.6-38.0); CALCIUM 9.3 MG/DL (8.5-10.1); CHLORIDE 105 MMOL/L (99-107); CREATININE 1.21 MG/DL (0.40-0.90); GLUCOSE 153 MG/DL (70-104); POTASSIUM 3.9 MMOL/L (3.5-5.1); SODIUM 140 MMOL/L (135-145); TOTAL CARBON DIOXIDE 27.7 MMOL/L (24-32); TOTAL PROTEIN 6.9 G/DL (6.4-8.2); eGFR 43 ML/MIN
[2018-11-11 02:20] LABS: ETHANOL < 0.010 GM/DL (0.0-0.010)
--- NOTE | 2018-11-11 02:26 | NUR ---
PT RESTING QUIETLY, DAUGHTER IN ROOM
--- NOTE | 2018-11-11 03:43 | NUR ---
TELEPSYCH CONSULT INITIATED AT THIS TIME
[2018-11-11 04:41] LABS: CLARITY,URINE CLEAR (Clear); COLOR,URINE YELLOW (Yellow); GLUCOSE, URINE NEGATIVE (Neg); KETONES,URINE NEGATIVE (Neg); LEUKOCYTE ESTERASE ,URINE NEGATIVE (Neg); NITRITES, URINE NEGATIVE (Neg); OCCULT BLOOD,URINE TRACE-INTACT (Neg); PROTEIN,URINE NEGATIVE (Neg); UROBILINOGEN,URINE 0.2 E.U/dL (0.2-1.0)
[2018-11-11 04:42] LABS: URINE AMPHETAMINE SCREEN NEGATIVE (Neg); URINE BARBITUATE SCREEN NEGATIVE (Neg); URINE BENZODIAZEPINES SCREEN NEGATIVE (Neg); URINE CANNABINOID SCREEN NEGATIVE (Neg); URINE COCAINE SCREEN NEGATIVE (Neg); URINE METHADONE SCREEN NEGATIVE (Neg); URINE OPIATE SCREEN NEGATIVE (Neg); URINE PHENCYCLIDINE SCREEN NEGATIVE (Neg)
[2018-11-11 04:45] LABS: UA COLLECTION TYPE STRAIGHT CATH
[2018-11-11 04:46] LABS: BACTERIA,URINE FEW /HPF (Neg); RBC,URINE 0-2 /HPF (0-2); SQUAMOUS EPITHELIAL CELL,UR FEW /LPF (FEW); WBC,URINE 0-4 /HPF (0-4)
--- NOTE | 2018-11-11 05:30 | NUR ---
TELEPSYCH CART PLACED IN PT'S ROOM, PT GIVEN BEDSIDE COMMODE, NO NEW C/O
--- NOTE | 2018-11-11 06:04 | NUR ---
TELEPSYCH MD INTERVIEWING PT AT THIS TIME
--- NOTE | 2018-11-11 06:31 | NUR ---
Patient laying in bed comfortably with daughter at bedside.
--- NOTE | 2018-11-11 06:48 | NUR ---
SPOKE WITH TELEPSYCH AND REPORT WILL BE FAXED OVER IN 5-10 MINUTES.
--- NOTE | 2018-11-11 09:51 | NUR ---
Patient moved from bed 15 to bed 21.
--- NOTE | 2018-11-11 10:11 | NUR ---
All pt belongings going home with pt's granddaughter
--- NOTE | 2018-11-11 10:22 | NUR ---
Lety, Granddaughter [phone].
--- NOTE | 2018-11-11 11:40 | NUR ---
Patient taken to BR via w/c by Юлия Perez. No distress observed. Continue to monitor.
[2018-11-11] MEDS ORDERED: EZET10TA13 PO (15:46)
[2018-11-11] MEDS ORDERED: non-formulary drug (Insulin Aspart (Novolog) 100 UNIT) SQ SCH (17:00)
[2018-11-11 18:19] VITALS: BP 130/77
[2018-11-11] MEDS ORDERED: calcium carbonate 500mg tablet PO SCH (20:00)
[2018-11-11] MEDS ORDERED: lactobacillus rhamnosus 10,000 MMU CELLS/CAPSULE PO SCH (20:00)
[2018-11-11] MEDS ORDERED: apixaban 5mg tablet PO SCH (20:00)
--- NOTE | 2018-11-11 21:39 | NUR ---
bladder scan was done, 820 cc in bladder. pt up to bsc to void immediately after scan and voided 275 cc. will notify
--- NOTE | 2018-11-11 21:44 | NUR ---
dr thomas notified of pt's urinary retention, order taken for straight cath
[2018-11-12] MEDS ORDERED: ezetimibe 10mg tablet PO SCH (08:00)
[2018-11-12] MEDS ORDERED: acetaminophen 325mg tablet PO SCH (08:00)
[2018-11-12] MEDS ORDERED: atenolol 50mg tablet PO SCH (08:00)
[2018-11-12] MEDS ORDERED: allopurinol 300 MG tablet PO SCH (08:00)
[2018-11-12] MEDS ORDERED: vitamin D (cholecalciferol) 1,000 unit tablet PO SCH (08:00)
[2018-11-12] MEDS ORDERED: OMEGA 3 FATTY ACIDS PO SCH (08:00)
[2018-11-12] MEDS ORDERED: [UNRECOGNIZED DRUG - OTHER] PO SCH (08:00)
[2018-11-12] MEDS ORDERED: sertraline 25mg tablet PO SCH (08:00)
[2018-11-12] MEDS ORDERED: aspirin 81mg tab.chew PO SCH (08:30)
== END 2018-11-11 21:58 ==
LOC: ER 01:10
DX: F22 Delusional disorders (principal); F32.9 Major depressive disorder, single episode, unspecified; I10 Essential (primary) hypertension; E11.9 Type 2 diabetes mellitus without complications; M19.90 Unspecified osteoarthritis, unspecified site; G89.29 Other chronic pain; M54.9 Dorsalgia, unspecified; Z90.49 Acquired absence of other specified parts of digestive tract; Z90.710 Acquired absence of both cervix and uterus; Z95.0 Presence of cardiac pacemaker; Z79.82 Long term (current) use of aspirin; Z79.4 Long term (current) use of insulin; Z88.6 Allergy status to analgesic agent; Z88.1 Allergy status to other antibiotic agents; Z88.8 Allergy status to other drugs, medicaments and biological substances
CPT/HCPCS: 36415; 80053; 80305; 80320; 81001; 84443; 85025; 93005; 99285; P9612

== ENCOUNTER 2018-11-11 21:10 | Inpatient (IN) | payer MEDICARE, OTHER ==
[~2018-11-11] VITALS: Ht 195.6 cm; Wt 95.5 kg
[~2018-11-11 21:10] MED LIST changes: +EZET10TA13 PO
[2018-11-11] MEDS ORDERED: loperamide 2mg capsule PO PRN (23:05)
[2018-11-11] MEDS ORDERED: acetaminophen 325mg tablet PO PRN (23:05)
[2018-11-11 23:30] VITALS: BP 168/98
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
--- NOTE | 2018-11-12 04:18 | NUR ---
Nursing Note: Skin check completed by Mitali Rooney, RN and Pedro Quintana RN. Pt. has a rash present under bilateral pannus and groin. She also has small scabbed abrasions present on her upper buttocks. Pictures obtained and placed in chart. Pt. up to use the BR several times and uses a FWW, she is a minimal assist r/t generalized weakness, fall precautions are in place. Pt. reports she is able to urinate, however is reporting constipation. Prune juice administered and pt. is able to have an x-large BM and voices content. Pt. sleeping at this time. Will endorse to AM shift and continue to monitor.
[2018-11-12] MEDS ORDERED: bisoprolol 5mg tablet PO SCH (08:00)
[2018-11-12] MEDS: OMEGA-3/DHA/EPA/FISH OIL 1 EACH CAPSULE.DR PO SCH (08:12)
[2018-11-12] MEDS: apixaban 5mg tablet PO SCH ×2 (08:12→20:00)
[2018-11-12] MEDS: calcium carbonate oral susp. 1,250 MG/5 ML (500mg/5ml elem. calcium) PO SCH (08:12)
[2018-11-12] MEDS: allopurinol 300 MG tablet PO SCH (08:13)
[2018-11-12] MEDS: cholecalciferol (vitamin D) 400 unit tablet PO SCH (08:13)
[2018-11-12] MEDS: ezetimibe 10mg tablet PO SCH (08:13)
[2018-11-12] MEDS: atenolol 50mg tablet PO SCH (08:13)
[2018-11-12] MEDS: sertraline 25mg tablet PO SCH (08:13)
[2018-11-12 09:55] LABS: HEMOGLOBIN A1C 6.8 % (4.5-6.2)
[2018-11-12 09:57] LABS: CHOL/HDL RATIO 4.3 (0.00-4.99); CHOLESTEROL 170 MG/DL (0-200); HDL CHOLESTEROL 40 MG/DL (35-60); LDL CHOLESTEROL 116 MG/DL (50-100); TRIGLYCERIDES 103 MG/DL (20-135)
[2018-11-12] MEDS ORDERED: tuberculin, purif. prot. deriv. 5 units/0.1ml ID ONE (10:00)
[2018-11-12] MEDS: magnesium hydroxide 30ml (MOM) UD suspension PO PRN (16:09)
--- NOTE | 2018-11-12 16:48 | NUR ---
NURSING PROGRESS NOTE Legal hold: 5150 Client on voluntary/involuntary status for GD/DTS/DTO Report received from VERO Lockwood with use of SBAR Why are they here: Pt reported to telepsych that she had a revelation that she was having thoughts of killing herself and her . She reports demons in her home that torture her and says they are targeting her because she is a failure. She believes these demons have placed cameras on her ceilings to get nude photos, that they try to poison her food/drinks/toothbrush, they talk from the tv, put snakes on the floor. Pt reported in ER that she feels like a burden to her family and feels like killing herself to rid of the focus of the demons. Pt denies S/I on the unit and states she would never harm herself or her , denies any prior psychiatric admissions. Assessment What has happened this shift: Patient was asleep at change of shift. she was awakened at breakfast but was irritable and uncooperative stating "just leave me alone." She did not eat breakfast. As she awakened later on she became more cooperative and less irritable. She was able to take medications with wait time. She is paranoid and guarded with questioning. She would not allow for PPD placement on day shift but will consider it for later. She did get up for lunch and became friendlier as the day went on. Had visit from granddaughter Dorys. Dorys stated patient was normal until suffering a stroke 4 years ago and then became paranoid and psychotic. She is urinating without difficulty and did complain of constipation for which she was given MOM. Napped throughout day. Denied thoughts of suicide at this time. Appears to be paranoid and afraid at times. S/I, H/I: Denies A/VH: Will not answer Sleep: Napped throughout day ADL's: Self with prompting Group attendance: None Were meds taken: Yes Any med S/E: None Mental Status Exam Appearance: Disheveled Eye contact: Fair Behavior: Guarded Speech: WNL Mood: Depressed Affect:Constricted Thought process: Paranoid Thought Content: I want to go home Cognition:Alert and oriented Insight:poor Judgment:poor Interventions PRN's used: MOM Therapeutic interventions: Established rapport, maintained a safe and therapeutic environment, provided reality reorientation as needed, encouraged performance of ADLs, provided medication education and maintained q15m safety checks. Restraints/seclusion/emergency medication: None Justification of Continued Inpatient Treatment: Patient requires interruption of current crisis, medication changes and adjustments, and a safe and supportive environment.
[2018-11-12] MEDS ORDERED: insulin Lispro (HumaLOG) vial - multi-dose SQ SCH (19:50)
[2018-11-12] MEDS ORDERED: dextrose ORAL solution 15 GM/59 ML bottle PO PRN ×2 (19:50)
[2018-11-12] MEDS ORDERED: MESSAGE TO PHARMACY PO ONE (19:50)
[2018-11-12] MEDS ORDERED: glucagon, human recombinant 1mg kit SUBCUT PRN (19:50)
[2018-11-12] MEDS ORDERED: dextrose 50%-water 50ml dispensing syringe IV PRN ×2 (19:50)
[2018-11-12] MEDS: insulin glargine (Lantus) pen - multi-dose SQ SCH (20:59)
--- NOTE | 2018-11-13 02:10 | NUR ---
Nursing Progress Note: Legal hold: 5150 Client on involuntary status for DTS/DTO. Report received from VERO Alford with use of SBAR Why are they here: Pt reported to Telepsych that she had a revelation that she was having thoughts of killing herself and her . 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 She believes these demons have placed cameras on her ceilings to get nude photos, that they try to poison her food/drinks/toothbrush, they talk from the tv, put snakes on the floor. Pt reported in ER that she feels like a burden to her family and feels like killing herself to rid of the focus of the demons. Pt denies S/I on the unit and states she would never harm herself or her , denies any prior psychiatric admissions. Assessment What has happened this shift: The patient was seen in her room for 1:1. The patient did not want to talk to me, but later agreed. The patient presents as guarded and paranoid. She continues to refuse placement of PPD. The patient was willing to talk about her Strokes and Diabetes, but would not talk about any of her psychotic symptoms. She denies SI/HI, or any AV/H. The patient admits to thinking she's a burden to her family, but she states she would never harm herself. The patient kept isolated to her room all shift, she took HS meds, and her blood glucose was 142. She is not yet requiring insulin. She made no delusional statements this shift. S/I, H/I: Denies A/VH: Denies Sleep: Reports poor sleep. ADL's: Independent. Needs some encouragement. Group attendance: No groups at night Were meds taken: Yes Any med S/E: None noted or observed. Mental Status Exam Appearance: Disheveled, hair messed up. Eye contact: Fair Behavior: Stays in bed being paranoid. Speech: Regular rate/rhythm. Mood: Depressed Affect: Constricted Thought process: Linear Thought Content: Preoccupied with thoughts of going home. Cognition:Alert and oriented Insight:poor Judgment:poor Interventions PRN's used: None Therapeutic interventions: Established rapport, maintained a safe and therapeutic environment, provided reality reorientation as needed, encouraged performance of ADLs, provided medication education and maintained q15m safety checks. Restraints/seclusion/emergency medication: None Justification of Continued Inpatient Treatment: Patient requires interruption of current crisis, medication changes and adjustments, and a safe and supportive environment.
[2018-11-13] MEDS: calcium carbonate oral susp. 1,250 MG/5 ML (500mg/5ml elem. calcium) PO SCH (08:09)
[2018-11-13] MEDS: sertraline 25mg tablet PO SCH (08:09)
[2018-11-13] MEDS: ezetimibe 10mg tablet PO SCH (08:09)
[2018-11-13] MEDS: apixaban 5mg tablet PO SCH ×2 (08:10→20:38)
[2018-11-13] MEDS: atenolol 50mg tablet PO SCH (08:10)
[2018-11-13] MEDS: cholecalciferol (vitamin D) 400 unit tablet PO SCH (08:52)
[2018-11-13] MEDS: OMEGA-3/DHA/EPA/FISH OIL 1 EACH CAPSULE.DR PO SCH (08:52)
[2018-11-13] MEDS: allopurinol 300 MG tablet PO SCH (08:52)
--- NOTE | 2018-11-13 13:05 | NUR ---
Patient received a regular diet tray for breakfast, Glucose elevated, did not initiate protocol. changed diet order to carb control. Addendum: 11/13/18 at 1307 by Elke Valencia RN Amended: Links added.
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
[2018-11-13 19:55] VITALS: BP 108/63
[2018-11-13] MEDS: mirtazapine 15mg tablet PO SCH (20:38)
[2018-11-13] MEDS: LORazepam 0.5 MG tablet PO SCH (20:38)
[2018-11-13] MEDS: insulin glargine (Lantus) pen - multi-dose SQ SCH (21:00)
--- NOTE | 2018-11-14 03:01 | NUR ---
Nursing Progress Note: Legal hold: 5150 Client on involuntary status for DTS/DTO. Report received from VERO Alford with use of SBAR Why are they here: Pt reported to Telepsych that she had a revelation that she was having thoughts of killing herself and her . 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 She believes these demons have placed cameras on her ceilings to get nude photos, that they try to poison her food/drinks/toothbrush, they talk from the tv, put snakes on the floor. Pt reported in ER that she feels like a burden to her family and feels like killing herself to rid of the focus of the demons. Pt denies S/I on the unit and states she would never harm herself or her , denies any prior psychiatric admissions. Assessment What has happened this shift: The patient was seen at her bedside for 1:1. She had just seen her and granddaughter, and was feeling good. The patient talked about how they came to be the parents of their grandchildren. The patient's granddaughter is very supportive. The patient made no delusional statements as we talked. She reports good appetite and is sleeping good. Her BG was 157 at HS. She is medicine compliant, and is denying SI/HI, or AV/H. The patient was happy to receive some personal belongings from home. She went to sleep right after HS med pass. S/I, H/I: Denies A/VH: Denies Sleep: Reports "pretty good" sleep. ADL's: Independent. Needs some encouragement. Group attendance: No groups at night Were meds taken: Yes Any med S/E: None noted or observed. Mental Status Exam Appearance: Disheveled, hair messed up, wearing a house dress. Eye contact: Fair Behavior: Appropriate.. Speech: Regular rate/rhythm. Mood: Depressed Affect: Constricted Thought process: Linear Thought Content: Preoccupied with thoughts of going home. Cognition:Alert and oriented Insight:poor Judgment:poor Interventions PRN's used: None Therapeutic interventions: Established rapport, maintained a safe and therapeutic environment, provided reality reorientation as needed, encouraged performance of ADLs, provided medication education and maintained q15m safety checks. Restraints/seclusion/emergency medication: None Justification of Continued Inpatient Treatment: Patient requires interruption of current crisis, medication changes and adjustments, and a safe and supportive environment.
[2018-11-14] MEDS: calcium carbonate oral susp. 1,250 MG/5 ML (500mg/5ml elem. calcium) PO SCH (08:10)
[2018-11-14] MEDS: OMEGA-3/DHA/EPA/FISH OIL 1 EACH CAPSULE.DR PO SCH (08:11)
[2018-11-14] MEDS: ezetimibe 10mg tablet PO SCH (08:11)
[2018-11-14] MEDS: cholecalciferol (vitamin D) 400 unit tablet PO SCH (08:11)
[2018-11-14] MEDS: atenolol 50mg tablet PO SCH (08:12)
[2018-11-14] MEDS: apixaban 5mg tablet PO SCH ×2 (08:12→20:40)
[2018-11-14] MEDS: LORazepam 0.5 MG tablet PO SCH ×2 (08:12→20:40)
[2018-11-14 08:14] VITALS: BP 155/99
[2018-11-14] MEDS: allopurinol 300 MG tablet PO SCH (09:14)
--- NOTE | 2018-11-14 17:45 | NUR ---
Nursing Progress Note: Legal hold: 5150 Client on involuntary status for DTS/DTO. Report received from VERO Bedoya with use of SBAR Why are they here: Pt reported to Telepsych that she had a revelation that she was having thoughts of killing herself and her . 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 She believes these demons have placed cameras on her ceilings to get nude photos, that they try to poison her food/drinks/toothbrush, they talk from the tv, put snakes on the floor. Pt reported in ER that she feels like a burden to her family and feels like killing herself to rid of the focus of the demons. Pt denies S/I on the unit and states she would never harm herself or her , denies any prior psychiatric admissions. Assessment What has happened this shift: Pt. in bed at beginning of shift, pt. is hypersomulant and difficult to arouse. Pt. takes medications and allowed assessment reulctantly. Pt. is agitated with assessment and gives information only after being asked multiple times. Pt. states, "stop asking if I'm suicidal". Pt. denies SI/HI, but reports there are demons following her. Pt. states they don't say anything to her, only follow her. Pt.'s luis daniel solomon visited today, informed this RN that pt.'s normal schedule is sleeping in until 1pm. Pt.'s blood glucose of 94 this am and 204 at noon, and 106 at 1700[address] Rn informed Dr. Medley of pt.'s BG being high at times. We are to continue monitoring. Pt. very lethargic today, needed lots of encouragement to get out of bed. Pt. sat at bedside great effort. Pt. encouraged to shower but refused. Pt. did eat all her dinner in the day room. S/I, H/I: Denies A/VH: Denies Sleep: Reports Pt. slept 5.75hrs last night and napped majority of day shift. ADL's: Independent. Pt. refused shower today. Group attendance: Pt. did not attend groups. Were meds taken: Yes Any med S/E: None noted or observed. Mental Status Exam Appearance: Disheveled, messy hair, wearing a house dress. Eye contact: Fair Behavior: Appropriate.. Speech: Regular rate/rhythm. Mood: Depressed Affect: Constricted Thought process: Thought blocking Thought Content: delusional about demons following her. Cognition:Alert and oriented Insight:poor Judgment:poor Interventions PRN's used: None Therapeutic interventions: Established rapport, maintained a safe and therapeutic environment, provided reality reorientation as needed, encouraged performance of ADLs, provided medication education and maintained q15m safety checks. Restraints/seclusion/emergency medication: None Justification of Continued Inpatient Treatment: Patient requires interruption of current crisis, medication changes and adjustments, and a safe and supportive environment.
[2018-11-14] MEDS: magnesium hydroxide 30ml (MOM) UD suspension PO PRN (19:06)
[2018-11-14] MEDS: mirtazapine 15mg tablet PO SCH (20:40)
[2018-11-14] MEDS: insulin glargine (Lantus) pen - multi-dose SQ SCH (21:00)
--- NOTE | 2018-11-15 01:44 | NUR ---
Nursing Progress Note: Legal hold: 5150 Client on involuntary status for DTS/DTO. Report received from VERO Alford with use of SBAR Why are they here: Pt reported to Telepsych that she had a revelation that she was having thoughts of killing herself and her . 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 She believes these demons have placed cameras on her ceilings to get nude photos, that they try to poison her food/drinks/toothbrush, they talk from the tv, put snakes on the floor. Pt reported in ER that she feels like a burden to her family and feels like killing herself to rid of the focus of the demons. Pt denies S/I on the unit and states she would never harm herself or her , denies any prior psychiatric admissions. Assessment What has happened this shift: Pt was sitting in a chair in her room at change of shift. 1:1 assessment completed at bedside. Spoke with patient about snoring at night and she states "the nurse at home gives me oxygen, I have a doctor and nurse at home, I don't wear a cpap, I only need oxygen." Suggested we have an RT consult and pt states "The demons send the nurse to me for the oxygen, I don't need oxygen here.The demons send people to my house that want to kill me" Pt continues to have delusions about the demons but states they are at her house and not here. Pt is also adamant that she doesnt want insulin stating she lost 160 lbs and doesnt want insulin. Pt is agreeable to have BG checked and was 148 this evening. Pt is also agreeable to discuss further should the need arise for insulin. Pt reports she is sleeping well "I slept like a log" Pt c/o constipation and was given MOM and had bm tonight. S/I, H/I: Denies A/VH: Denies Sleep: sleeps good ADL's: Independent. Pt. refused shower today. Group attendance: Pt. did not attend groups. Were meds taken: Yes Any med S/E: None noted or observed. Mental Status Exam Appearance: Disheveled, messy hair, wearing a house dress. pt refusing showers Eye contact: Fair Behavior: Appropriate. Speech: Regular rate/rhythm. Mood: Depressed Affect: Constricted Thought process: Thought blocking, suspicious Thought Content: delusional about demons following her. Cognition:Alert and oriented Insight:poor Judgment:poor Interventions PRN's used: None Therapeutic interventions: Established rapport, maintained a safe and therapeutic environment, provided reality reorientation as needed, encouraged performance of ADLs, provided medication education and maintained q15m safety checks. Restraints/seclusion/emergency medication: None Justification of Continued Inpatient Treatment: Patient requires interruption of current crisis, medication changes and adjustments, and a safe and supportive environment.
[2018-11-15] MEDS: apixaban 5mg tablet PO SCH ×2 (08:20→21:23)
[2018-11-15] MEDS: LORazepam 0.5 MG tablet PO SCH ×2 (08:20→21:23)
[2018-11-15] MEDS: ezetimibe 10mg tablet PO SCH (08:21)
[2018-11-15] MEDS: atenolol 50mg tablet PO SCH (08:21)
[2018-11-15] MEDS: allopurinol 300 MG tablet PO SCH (08:22)
[2018-11-15] MEDS: omega-3 acid ethyl esters 1GM capsule PO SCH (08:22)
[2018-11-15] MEDS: calcium carbonate oral susp. 1,250 MG/5 ML (500mg/5ml elem. calcium) PO SCH (08:26)
[2018-11-15] MEDS: cholecalciferol (vitamin D) 400 unit tablet PO SCH (08:31)
--- NOTE | 2018-11-15 14:05 | NUR ---
Pt. found shouting in her room on the floor, reporting that she fell after losing balance and falling while trying to throw garbage away into the garbage can that was moved into a different location. Pt. reports pain on her right bottom and right hand. Hospitalist Dr. Hassan notified, X-rays ordered, and pt. assessed. Pt.'s vitals after fall were 129/73, 16 resp, 96% SP02, and 70 BPM. Pt. assisted up with 4 person assist with gate belt and placed in bed. Pt. is alert& orientedX3, pt. not oriented to time which is consistent with with assessment from this AM. Pt. is calm and cooperative and resting in bed. Awaiting X-ray results. Addendum: 11/15/18 at 1614 by Alo Robles RN Pt. c/o of pain 7/10 in right hip that goes to 10/10 when directly laying on hip. X-Rays done, awaiting results. Addendum: 11/15/18 at 1623 by Alo Robles RN Pt. assessed for wounds post-fall, no bruises or injuries noted.
[2018-11-15] MEDS: nystatin 15 GM powder TP SCH ×2 (16:20→21:23)
--- NOTE | 2018-11-15 17:47 | NUR ---
Nursing Progress Note: Legal hold: 5150 Client on involuntary status for DTS/DTO. Report received from VERO Lockwood with use of SBAR Why are they here: Pt reported to Telepsych that she had a revelation that she was having thoughts of killing herself and her . 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 She believes these demons have placed cameras on her ceilings to get nude photos, that they try to poison her food/drinks/toothbrush, they talk from the tv, put snakes on the floor. Pt reported in ER that she feels like a burden to her family and feels like killing herself to rid of the focus of the demons. Pt denies S/I on the unit and states she would never harm herself or her , denies any prior psychiatric admissions. Assessment What has happened this shift: accu checks stopped. showered. meds. ate. Nystatin powder. check skin. 1:1 done in day room. Pt. is A&OX3 does not know time. Pt. made joke during assessment of pain saying, "If you step on my foot I'll have pain". Pt. is showered and in a dress, sitting in whell chair. Pt. appears brighter today, took meds, and ate breakfast. Pt. reminicsing about [place] talks about encountering mountain lions. Pt. is calm, cooperative. Discussed CPAP, pt. does not want CPAP. Pt. found shouting in her room on the floor, reporting that she fell after losing balance and falling while trying to throw garbage away into the garbage can that was moved into a different location. Pt. reports pain on her right bottom and right hand. Hospitalist Dr. Hassan notified, X-rays ordered, and pt. assessed. Pt.'s vitals after fall were 129/73, 16 resp, 96% SP02, and 70 BPM. Pt. assisted up with 4 person assist with gate belt and placed in bed. Pt. is alert& orientedX3, pt. not oriented to time which is consistent with with assessment from this AM. Pt. is calm and cooperative and resting in bed. Awaiting X-ray results. Pt. c/o of pain 7/10 in right hip that goes to 10/10 when directly laying on hip. X-Rays done, awaiting results. Pt. assessed for wounds post-fall, no bruises or injuries noted. Nystatin powder applied to pt.'s pannis and under pt.'s breasts. Pt.'s left breast Nystatin powder applied to pt.'s yeast infection under breasts and pannis. X-rays negative for fracture or dislocation. S/I, H/I: Denies A/VH: Denies Sleep: reports she slept well. ADL's: Independent. Pt. showered today. Group attendance: Pt. attended morning group. Were meds taken: Yes Any med S/E: None noted or observed. Mental Status Exam Appearance: showered and in clean dress. hair brushed. Eye contact: Fair Behavior: Appropriate. Speech: Regular rate/rhythm. Mood: euthmyc Affect: Flat Thought process: Tangential. Thought Content: Some delusions about demons but was more sentimental today talking about childhood. Cognition:Alert and oriented Insight:poor Judgment:poor Interventions PRN's used: None Therapeutic interventions: Established rapport, maintained a safe and therapeutic environment, provided reality reorientation as needed, encouraged performance of ADLs, provided medication education and maintained q15m safety checks. Restraints/seclusion/emergency medication: None Justification of Continued Inpatient Treatment: Patient requires interruption of current crisis, medication changes and adjustments, and a safe and supportive environment.
[2018-11-15] MEDS: insulin glargine (Lantus) pen - multi-dose SQ SCH (21:00)
[2018-11-15] MEDS: mirtazapine 15mg tablet PO SCH (21:23)
--- NOTE | 2018-11-16 01:48 | NUR ---
Nursing Progress Note: Legal hold:5250 Client on voluntary/involuntary status for being gravely disabled Report received from nurse with use of FABI Higginbotham RN. Why are they here: The patient is 78 year old female who was seen in the ER after being taken there by EMS and her daughter. Her daughter reported that the patient has had increasing psychotic symptoms for the past 5 years. She currently lives with her in [place]. She has a medical history of CVA, TIA, arrhythmia, HTN, Pneumonia, sleep apnea, DM, arthritis, chronic pain, gout, and pacemaker. Assessment What has happened this shift: The patient has been fairly isolative to her bed. She is up with supervision only at this time 2nd to a fall she had during the day. The patient is denying that she is hearing voices and added, "I see visions out my window" She stated that the "demons" were bothering her more at home and were torturing her and "they talk with their ands and I don't understand sign language" She stated that she did know her diagnosis. She was increasing confused during the night. She thought the year was 1987. She asked where the bathroom was in her room. When asked if she felt depressed she replied, "Not as much" She denies being a danger to herself or others. She denies being anxious. S/I, H/I: The patient denies A/VH: THe patient reports seeing things outside of her window Sleep:[] ADL's: Requires assistance by staff Group attendance: No PM group being held Were meds taken: The patient is medication compliant Any med S/E the patient denies Mental Status Exam Appearance: THe patient is resting on her bed in a brightly flowered dress. Eye contact: Fair Behavior: quietly resting on her bed. She is asking assistance to the bathroom. Speech: Monotone, slow deliberate Mood: Underlying irritability and focused on the things in the past Affect: Blunted Thought process: Disorganized, negative Thought Content: Paranoid, delusional Cognition: Confused Insight: Poor Judgment: Poor Interventions PRN's used: None Therapeutic interventions: One to one with the patient to assess severity of thought disorder and for the severity of depressive symptoms and self harm risk. Provided medication education and presented reality. Restraints/seclusion/emergency medication: NONE Justification of Continued Inpatient Treatment: The patient continues to have psychotic symptoms and requires prompting for self care. She is confused.
[2018-11-16 07:45] VITALS: BP 117/80
[2018-11-16] MEDS: calcium carbonate oral susp. 1,250 MG/5 ML (500mg/5ml elem. calcium) PO SCH (08:12)
[2018-11-16] MEDS: cholecalciferol (vitamin D) 400 unit tablet PO SCH (08:12)
[2018-11-16] MEDS: omega-3 acid ethyl esters 1GM capsule PO SCH (08:12)
[2018-11-16] MEDS: ezetimibe 10mg tablet PO SCH (08:13)
[2018-11-16] MEDS: apixaban 5mg tablet PO SCH ×2 (08:13→20:53)
[2018-11-16] MEDS: atenolol 50mg tablet PO SCH (08:14)
[2018-11-16] MEDS: nystatin 15 GM powder TP SCH ×3 (08:16→20:54)
[2018-11-16] MEDS: allopurinol 300 MG tablet PO SCH (08:30)
--- NOTE | 2018-11-16 11:30 | NUR ---
Initial: Pt admit to [facility] with psychosis. Pt currently on a CHO controlled diet with documented 75-100% PO intake likely meeting nutrient needs. Per physical assessment pt reports chronic dysphagia d/t CVA however requires no special diet. RD consulted ST for BSS eval to make sure pt receiving appropriate texture modification if pt truly has dysphagia. LBM 11/14. No edema or wounds. No nutrition diagnosis at this time. Will continue to follow. Recommendations: 1) Continue with CHO controlled diet with texture modification per [employer] pending BSS 2) Weekly wt Addendum: 11/16/18 at [address] Amended: Links added.
--- NOTE | 2018-11-16 18:08 | NUR ---
Nursing Progress Note: Legal hold: 5150 Client on involuntary status for DTS/DTO. Report received from VERO Lockwood with use of SBAR Why are they here: Pt reported to Telepsych that she had a revelation that she was having thoughts of killing herself and her . 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 She believes these demons have placed cameras on her ceilings to get nude photos, that they try to poison her food/drinks/toothbrush, they talk from the tv, put snakes on the floor. Pt reported in ER that she feels like a burden to her family and feels like killing herself to rid of the focus of the demons. Pt denies S/I on the unit and states she would never harm herself or her , denies any prior psychiatric admissions. Assessment What has happened this shift: Patient was asleep at change of shift and up for breakfast. Patient states she saw demons at her window this morning. Patient is still having some delusions about cameras on her ceiling. Patient has a depressed affect. Patient was sitting in her chair in her room today and attempted to get up with her walker but slid to the floor. Patient denies pain and RN Jamie and gary Mcleod assisted patient to the bed. Patient was placed on a line of sight. Patient knows she need to ask for help when she gets up and goes down. Patient's relative called and said patient is supposed to be on a C-PAP but she refused to use one. Family believes she needs to be on oxygen at night. Dr Medley okayed a random sleeping pulse ox reading to determine if she needs oxygen. X-rays negative for fracture or dislocation. S/I, H/I: Denies A/VH: Denies Sleep: reports she slept well. ADL's: Independent. Group attendance: Pt. attended morning group. Were meds taken: Yes Any med S/E: None noted or observed. Mental Status Exam Appearance: a little disheveled Eye contact: Fair Behavior: Appropriate. Speech: Regular rate/rhythm. Mood: depressed Affect: Flat Thought process: Tangential. Thought Content: Some delusions about demons Cognition:Alert and oriented Insight:poor Judgment:poor Interventions PRN's used: None Therapeutic interventions: Established rapport, maintained a safe and therapeutic environment, provided reality reorientation as needed, encouraged performance of ADLs, provided medication education and maintained q15m safety checks. Restraints/seclusion/emergency medication: None Justification of Continued Inpatient Treatment: Patient requires interruption of current crisis, medication changes and adjustments, and a safe and supportive environment.
[2018-11-16 19:46] VITALS: BP 120/63
[2018-11-16] MEDS: mirtazapine 15mg tablet PO SCH (20:53)
[2018-11-16] MEDS: insulin glargine (Lantus) pen - multi-dose SQ SCH (21:00)
--- NOTE | 2018-11-17 01:42 | NUR ---
Nursing Progress Note: Legal hold: 5250 Client on involuntary status for DTS/DTO. Report received from VERO Kumar with use of SBAR Why are they here: Pt reported to Telepsych that she had a revelation that she was having thoughts of killing herself and her . 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 She believes these demons have placed cameras on her ceilings to get nude photos, that they try to poison her food/drinks/toothbrush, they talk from the tv, put snakes on the floor. Pt reported in ER that she feels like a burden to her family and feels like killing herself to rid of the focus of the demons. Pt denies S/I on the unit and states she would never harm herself or her , denies any prior psychiatric admissions. Assessment What has happened this shift: Patient is in her room in bed at the change of shift. She agrees to a 1:1 assessment at her bedside. She reports seeing "demons outside her window." but reports that they are nice and not scary like the ones at home, that the ones here are not bothering her. Her came to visit with her granddaughter this evening and she reports a "good" visit. She is compliant with her evening medications, allows nystatin powder to be applied to her pannus. She later wakes up and is aggressive towards PCT sitting with her and throws water at he PCT. This staff writer comes and sits with her at this time she reports seeing "3 demon men", and is pointing towards her ceiling saying where they are . She then reports "apparently they poisoned and killed my ." Then states calling out "Inder (husbands name), I hear him he's in the benitez that's his sniffle." Attempts made to reality orient the patient are unsuccessful. She is eventually able to be calmed and falls back asleep. S/I, H/I: Denies A/VH: Denies Sleep: Reports she slept well. ADL's: Independent. Group attendance: No groups this shift. Were meds taken: Yes Any med S/E: None noted or observed. Mental Status Exam Appearance: Disheveled, food on clothing Eye contact: Fair Behavior: Irritable, agitated. Speech: Regular rate/rhythm. Mood: Depressed Affect: Flat Thought process: Tangential Thought Content: Delusions about demons Cognition: Impaired Insight: Poor Judgment: Poor Interventions PRN's used: None Therapeutic interventions: 1:1 therapeutic assessment, maintained safe therapeutic milieu, encouraged independent ADLs, provided active listening with positive feedback, provided medication education as needed, monitored for change in behavior and needed intervention. Q 15 min safety checks. Restraints/seclusion/emergency medication: None Justification of Continued Inpatient Treatment: Patient requires interruption of current crisis, medication changes and adjustments, and a safe and supportive environment.
[2018-11-17] MEDS ORDERED: LORazepam 1 MG tablet PO ONE (02:10)
--- NOTE | 2018-11-17 02:30 | NUR ---
At approximately 2 am I was in the hallway and heard a yell that came from [facility] room. I went in to see what was going on and the line of sight sitter reported that the pt had been trying to lean over the side of the bed and grab at the curtain and when she redirected her she started yelling. I explained to Ruma that she has already had 2 falls and leaning over like that on the bed could cause another fall. The pt dismissed it saying "It wasn't a big deal and I wasn't going to fall. I don't like being told what to do!" I again reminded her we are here to help her, but she then started saying I was also being a pest. She has been irritable throughout the night, some of it related to delusions about the demons. She appears agitated now and is not redirectable, is doing things that are unsafe so Dr Medley contacted and notified of pts behavior. Ativan 1 mg po now order given to see if it will decrease pts agitation and help her sleep. I offered her the Ativan and she was initially resistive stating "You are just trying to drug me." I explained to her that not sleeping is one of the issues she has been having at home and that we are trying to help her get well, she finally agreed. When I discussed with the patient throwing water on the line of sight staff pt did not recall the event even occuring. A different staff was placed with the patient in hopes that might help decrease patients bx.
--- NOTE | 2018-11-17 05:17 | NUR ---
Ativan effective in helping pt fall asleep without any further episodes of agitation, line of sight staff remain at bedside.
[2018-11-17 08:00] VITALS: BP 119/68
[2018-11-17] MEDS: cholecalciferol (vitamin D) 400 unit tablet PO SCH (09:13)
[2018-11-17] MEDS: omega-3 acid ethyl esters 1GM capsule PO SCH (09:13)
[2018-11-17] MEDS: ezetimibe 10mg tablet PO SCH (09:13)
[2018-11-17] MEDS: atenolol 50mg tablet PO SCH (09:14)
[2018-11-17] MEDS: calcium carbonate oral susp. 1,250 MG/5 ML (500mg/5ml elem. calcium) PO SCH (09:14)
[2018-11-17] MEDS: apixaban 5mg tablet PO SCH ×2 (09:14→20:57)
[2018-11-17] MEDS: nystatin 15 GM powder TP SCH ×3 (09:15→21:00)
[2018-11-17] MEDS: allopurinol 300 MG tablet PO SCH (09:16)
--- NOTE | 2018-11-17 16:37 | NUR ---
Nursing Progress Note: Legal hold: 5150 Client on involuntary status for DTS/DTO. Report received from VERO Lockwood with use of SBAR Why are they here: Pt reported to Telepsych that she had a revelation that she was having thoughts of killing herself and her . 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 She believes these demons have placed cameras on her ceilings to get nude photos, that they try to poison her food/drinks/toothbrush, they talk from the tv, put snakes on the floor. Pt reported in ER that she feels like a burden to her family and feels like killing herself to rid of the focus of the demons. Pt denies S/I on the unit and states she would never harm herself or her , denies any prior psychiatric admissions. Assessment What has happened this shift: Patient was asleep at change of shift and slept through breakfast. RN awoke patient after 0900 to give patient meds. Patient was very agitated but took her medication. Patient went back to sleep after meds given. Patient was up before lunch and got up with sitter, as patient is a line of sight, to the BR with her walker. Patient ate her lunch in her room. This afternoon patient had her hearing and walked to the CR with her walker. Patient did not contest her 5250 hold. Patient did say she just wants someone to take care of the demons. RN went back to room with patient. Patient was tearful because nobody here, nor her family has helped her with her demons. RN sat with patient and attempted to comfort her. Patient has a depressed affect. X-rays negative for fracture or dislocation. S/I, H/I: Denies A/VH: Denies Sleep: reports she slept well. ADL's: Needs assistance Group attendance: None Were meds taken: Yes Any med S/E: None noted or observed. Mental Status Exam Appearance: a little disheveled Eye contact: Fair Behavior: Appropriate. Speech: Regular rate/rhythm. Mood: depressed Affect: Flat Thought process: Tangential. Thought Content: Some delusions about demons Cognition:Alert and oriented Insight:poor Judgment:poor Interventions PRN's used: None Therapeutic interventions: Established rapport, maintained a safe and therapeutic environment, provided reality reorientation as needed, encouraged performance of ADLs, provided medication education and maintained q15m safety checks. Restraints/seclusion/emergency medication: None Justification of Continued Inpatient Treatment: Patient requires interruption of current crisis, medication changes and adjustments, and a safe and supportive environment.
[2018-11-17 19:00] VITALS: BP 107/68
[2018-11-17] MEDS: mirtazapine 15mg tablet PO SCH (20:57)
[2018-11-17] MEDS: insulin glargine (Lantus) pen - multi-dose SQ SCH (21:00)
--- NOTE | 2018-11-18 01:30 | NUR ---
Nursing Progress Note: Legal hold: 5250 Client on involuntary status for DTS/DTO. Report received from VERO Morillo with use of SBAR Why are they here: Pt reported to Telepsych that she had a revelation that she was having thoughts of killing herself and her . 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 She believes these demons have placed cameras on her ceilings to get nude photos, that they try to poison her food/drinks/toothbrush, they talk from the tv, put snakes on the floor. Pt reported in ER that she feels like a burden to her family and feels like killing herself to rid of the focus of the demons. Pt denies S/I on the unit and states she would never harm herself or her , denies any prior psychiatric admissions. Assessment What has happened this shift: Patient is in her room in bed at the change of shift. She agrees to a 1:1 assessment at her bedside. Patient appears depressed this evening She speaks very quietly and presents with a flat affect. She is not as talkative this evening as she was last evening. She denies SI, Hi, VH and AH this shift. She does not report seeing any demons this evening. She spends time visiting her and granddaughter this evening and reports the visit being "wonderful", however her affect is still depressed/flat. She is compliant with all her evening medications and falls asleep shortly after medication pass. S/I, H/I: Denies A/VH: Denies Sleep: Currently sleeping, see sleep assessment ADL's: Independent. Group attendance: No groups this shift. Were meds taken: Yes Any med S/E: None noted or observed. Mental Status Exam Appearance: Disheveled, food on clothing Eye contact: Fair Behavior: Quiet, stays in bed Speech: Quiet in tone, regular rate/rhythm. Mood: Depressed Affect: Flat Thought process: Linear Thought Content: Preoccupied with family Cognition: Impaired Insight: Poor Judgment: Poor Interventions PRN's used: None Therapeutic interventions: 1:1 therapeutic assessment, maintained safe therapeutic milieu, encouraged independent ADLs, provided active listening with positive feedback, provided medication education as needed, monitored for change in behavior and needed intervention. Q 15 min safety checks. Restraints/seclusion/emergency medication: None Justification of Continued Inpatient Treatment: Patient requires interruption of current crisis, medication changes and adjustments, and a safe and supportive environment.
[2018-11-18 08:00] VITALS: BP 137/73
[2018-11-18] MEDS: nystatin 15 GM powder TP SCH ×3 (08:00→21:00)
[2018-11-18] MEDS: apixaban 5mg tablet PO SCH ×2 (08:37→20:04)
[2018-11-18] MEDS: cholecalciferol (vitamin D) 400 unit tablet PO SCH (08:37)
[2018-11-18] MEDS: omega-3 acid ethyl esters 1GM capsule PO SCH (08:37)
[2018-11-18] MEDS: ezetimibe 10mg tablet PO SCH (08:37)
[2018-11-18] MEDS: calcium carbonate oral susp. 1,250 MG/5 ML (500mg/5ml elem. calcium) PO SCH (08:37)
[2018-11-18] MEDS: allopurinol 300 MG tablet PO SCH (08:38)
[2018-11-18] MEDS: atenolol 50mg tablet PO SCH (08:38)
[2018-11-18] MEDS: magnesium hydroxide 30ml (MOM) UD suspension PO PRN (08:55)
[2018-11-18] MEDS: mag hydrox/Alum hydrox/simeth 30ml oral suspension PO PRN (11:26)
--- NOTE | 2018-11-18 16:52 | NUR ---
Nursing Progress Note: Legal hold: 5250 Client on involuntary status for DTS/DTO. Report received from Lizet Murcia RN with use of SBAR Why are they here: Pt reported to Telepsych that she had a revelation that she was having thoughts of killing herself and her . 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 She believes these demons have placed cameras on her ceilings to get nude photos, that they try to poison her food/drinks/toothbrush, they talk from the tv, put snakes on the floor. Pt reported in ER that she feels like a burden to her family and feels like killing herself to rid of the focus of the demons. Pt denies S/I on the unit and states she would never harm herself or her , denies any prior psychiatric admissions. Assessment What has happened this shift: Patient is observed resting at change of shift. She awakens and joins others in the group room for breakfast. She enjoys her meal and then takes her medications without any issue. Patient states she cannot remember last BM, chart shows November 16, patient states she has issues with constipation and that prune juice does not help, MOM administered. After breakfast patient showers and then returns to her room. Patient c/o stomach acid in her throat, Maalox administered. Patients grand-daughter Palmira called to check on patient, LEONIDAS on file. RN informs patient and during discussion patient has difficulty remembering her two grand-childrens names. 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 S/I, H/I: none reported A/VH: none reported Sleep: 7.5hrs NOC and rested during the day ADL's: needs assistance, assisted with shower today Group attendance: yes Were meds taken: Yes Any med S/E: None noted or observed. Mental Status Exam Appearance: dressed in a dress, hair brushed Eye contact: occasionally direct Behavior: friendly and cooperative Speech: soft tone, periodic pausing when losing train of thought Mood: appears calm Affect: restricted with brightening Thought process: Linear, conversation is easy to follow Thought Content: Preoccupied with family Cognition: Impaired Insight: fair, states her is happy she is getting help Judgment: Poor Interventions PRN's used: MOM for constipation, Maalox for stomach acid Therapeutic interventions: 1:1 therapeutic assessment, maintained safe therapeutic milieu, encouraged ADLs, provided active listening with positive feedback, provided medication education as needed, monitored for change in behavior and needed intervention. Q 15 min safety checks. Restraints/seclusion/emergency medication: None Justification of Continued Inpatient Treatment: Continued therapeutic support and medication management needed to provide stabilization, and prevent decompensation decreasing risk to patient for readmittance to in-patient unit.
[2018-11-18 19:00] VITALS: BP 135/81
[2018-11-18] MEDS: mirtazapine 15mg tablet PO SCH (20:04)
[2018-11-18] MEDS: insulin glargine (Lantus) pen - multi-dose SQ SCH (21:00)
--- NOTE | 2018-11-19 02:07 | NUR ---
Nursing Progress Note: Legal hold: 5250 Client on involuntary status for DTS/DTO. Report received from VERO Morillo with use of SBAR Why are they here: Pt reported to Telepsych that she had a revelation that she was having thoughts of killing herself and her . 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 She believes these demons have placed cameras on her ceilings to get nude photos, that they try to poison her food/drinks/toothbrush, they talk from the tv, put snakes on the floor. Pt reported in ER that she feels like a burden to her family and feels like killing herself to rid of the focus of the demons. Pt denies S/I on the unit and states she would never harm herself or her , denies any prior psychiatric admissions. Assessment What has happened this shift: Patient sits in community room at shift change eating dinner. She had 2 visitors which she stayed engaged with the entire time they were visiting. Pt makes direct eye contact and answers questions appropriately. Pt is cooperative with assessment and takes her HS medications. She refuses her HS nystatin, saying "they put it o earlier and I don't need it yet." Pt is still on a 1:1. Pt's blood sugar was taken this HS, it was 163. AC/HS accuchecks initiated in the interventions. S/I, H/I: none reported A/VH: none reported Sleep: see sleep assessment. ADL's: needs assistance Group attendance: yes Were meds taken: Yes Any med S/E: None noted or observed. Mental Status Exam Appearance: clean, dressed appropriately Eye contact: fair Behavior: friendly and cooperative Speech: soft tone, periodic pausing Mood: calm Affect: restricted with brightening Thought process: Linear, conversation is easy to follow Thought Content: WNL Cognition: Impaired Insight: fair Judgment: Poor Interventions PRN's used: none Therapeutic interventions: 1:1 therapeutic assessment, maintained safe therapeutic milieu, encouraged ADLs, provided active listening with positive feedback, provided medication education as needed, monitored for change in behavior and needed intervention. 1:1 sitter. Restraints/seclusion/emergency medication: None Justification of Continued Inpatient Treatment: Continued therapeutic support and medication management needed to provide stabilization, and prevent decompensation decreasing risk to patient for readmittance to in-patient unit.
[2018-11-19 08:00] VITALS: BP 171/90
[2018-11-19] MEDS: nystatin 15 GM powder TP SCH ×3 (08:00→21:00)
[2018-11-19] MEDS: cholecalciferol (vitamin D) 400 unit tablet PO SCH (08:49)
[2018-11-19] MEDS: atenolol 50mg tablet PO SCH (08:49)
[2018-11-19] MEDS: omega-3 acid ethyl esters 1GM capsule PO SCH (08:49)
[2018-11-19] MEDS: apixaban 5mg tablet PO SCH ×2 (08:49→20:46)
[2018-11-19] MEDS: ezetimibe 10mg tablet PO SCH (08:49)
[2018-11-19] MEDS: allopurinol 300 MG tablet PO SCH (08:50)
[2018-11-19] MEDS: calcium carbonate oral susp. 1,250 MG/5 ML (500mg/5ml elem. calcium) PO SCH (08:50)
--- NOTE | 2018-11-19 17:06 | NUR ---
Nursing Progress Note: Legal hold: 5250 Client on involuntary status for DTS/DTO. Report received from Lizet Murcia RN with use of SBAR Why are they here: Pt reported to Telepsych that she had a revelation that she was having thoughts of killing herself and her . 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 She believes these demons have placed cameras on her ceilings to get nude photos, that they try to poison her food/drinks/toothbrush, they talk from the tv, put snakes on the floor. Pt reported in ER that she feels like a burden to her family and feels like killing herself to rid of the focus of the demons. Pt denies S/I on the unit and states she would never harm herself or her , denies any prior psychiatric admissions. Assessment What has happened this shift: Patient is observed laying in bed at shift change. Report received that patient asked tech for a gun. RN greets patient, patients demeanor seems agitated, eyes glaring and lips slightly pierced. Patient states that she is seeing people above my head, they are saying things that she cannot repeat. She appears paranoid, stating that I am with them and that I should be thankful for the things that I have. RN assured patient that there was not anybody there and that she was safe. Patients demeanor lasted until after breakfast. After breakfast she visibly relaxed, face softened with brightening and conversation was easy. Patient attended afternoon group and visited with others. S/I, H/I: none reported A/VH: as above Sleep: 7.75hrs NOC and rested during the day ADL's: needs assistance Group attendance: yes Were meds taken: Yes Any med S/E: None noted or observed. Mental Status Exam Appearance: dressed in a dress, hair disheveled Eye contact: direct Behavior: initially guarded after breakfast she was friendly and cooperative Speech: soft tone, periodic pausing when losing train of thought Mood: disturbed in the morning, content in the afternoon Affect: congruent to mood Thought process: paranoid (as above) Thought Content: family Cognition: Impaired Insight: fair Judgment: Poor Interventions PRN's used: none Therapeutic interventions: 1:1 therapeutic assessment, maintained safe therapeutic milieu, encouraged ADLs, provided active listening with positive feedback, provided medication education as needed, monitored for change in behavior and needed intervention. Q 15 min safety checks. Restraints/seclusion/emergency medication: None Justification of Continued Inpatient Treatment: Continued therapeutic support and medication management needed to provide stabilization, and prevent decompensation decreasing risk to patient for readmittance to in-patient unit.
[2018-11-19 19:00] VITALS: BP 118/72
[2018-11-19] MEDS: mirtazapine 15mg tablet PO SCH (20:46)
[2018-11-19] MEDS ORDERED: insulin glargine (Lantus) pen - multi-dose SQ ONE (21:00)
--- NOTE | 2018-11-20 01:01 | NUR ---
Nursing Progress Note: Legal hold: 5250 Client on involuntary status for DTS/DTO. Report received from VERO Morillo with use of SBAR Why are they here: Pt reported to Telepsych that she had a revelation that she was having thoughts of killing herself and her . 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 She believes these demons have placed cameras on her ceilings to get nude photos, that they try to poison her food/drinks/toothbrush, they talk from the tv, put snakes on the floor. Pt reported in ER that she feels like a burden to her family and feels like killing herself to rid of the focus of the demons. Pt denies S/I on the unit and states she would never harm herself or her , denies any prior psychiatric admissions. Assessment What has happened this shift: Patient had a visit with her jacqueline, that she said went well. Pt states she is not suicidal and "never really was." When asked if she is having any AH/VH she replies, "no I don't hallucinate at all." She also states "I know people think I'm crazy, but the demons I see are real." "There are demons that live in my house that have been there for 5 years, I can see them but no one else can." "They don't speak, the just make hand signs." Pt had a BM this shift. Her HS blood sugar was 141. She was medication compliant and allowed com writer to apply Nystatin powder too her panus. Pt's blood sugar was taken this HS, it was 163. AC/HS accuchecks initiated in the interventions. S/I, H/I: none reported A/VH: none reported Sleep: see sleep assessment. ADL's: needs assistance Group attendance: yes Were meds taken: Yes Any med S/E: None noted or observed. Mental Status Exam Appearance: clean, dressed appropriately Eye contact: fair Behavior: cooperative Speech: soft tone, periodic pausing Mood: calm Affect: restricted, flat Thought process: Linear Thought Content: delusional at times Cognition: Impaired Insight: fair Judgment: Poor Interventions PRN's used: none Therapeutic interventions: 1:1 therapeutic assessment, maintained safe therapeutic milieu, encouraged ADLs, provided active listening with positive feedback, provided medication education as needed, monitored for change in behavior and needed intervention. 1:1 sitter. Restraints/seclusion/emergency medication: None Justification of Continued Inpatient Treatment: Continued therapeutic support and medication management needed to provide stabilization, and prevent decompensation decreasing risk to patient for readmittance to in-patient unit.
[2018-11-20 08:00] VITALS: BP 133/91
[2018-11-20] MEDS: nystatin 15 GM powder TP SCH ×3 (08:00→21:00)
[2018-11-20] MEDS: calcium carbonate oral susp. 1,250 MG/5 ML (500mg/5ml elem. calcium) PO SCH (08:32)
[2018-11-20] MEDS: omega-3 acid ethyl esters 1GM capsule PO SCH (08:32)
[2018-11-20] MEDS: apixaban 5mg tablet PO SCH ×2 (08:32→21:01)
[2018-11-20] MEDS: ezetimibe 10mg tablet PO SCH (08:32)
[2018-11-20] MEDS: atenolol 50mg tablet PO SCH (08:33)
[2018-11-20] MEDS: cholecalciferol (vitamin D) 400 unit tablet PO SCH (08:33)
[2018-11-20] MEDS: allopurinol 300 MG tablet PO SCH (08:41)
--- NOTE | 2018-11-20 15:32 | NUR ---
Nursing Progress Note: Legal hold: 5250 Client on involuntary status for DTS/DTO. Report received from VERO Thomas with use of SBAR Why are they here: Pt reported to Telepsych that she had a revelation that she was having thoughts of killing herself and her . 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 She believes these demons have placed cameras on her ceilings to get nude photos, that they try to poison her food/drinks/toothbrush, they talk from the tv, put snakes on the floor. Pt reported in ER that she feels like a burden to her family and feels like killing herself to rid of the focus of the demons. Pt denies S/I on the unit and states she would never harm herself or her , denies any prior psychiatric admissions. Assessment What has happened this shift: Patient is observed sleeping at change of shift. She is awoken just prior to breakfast to have her BS checked. She seems anxious, trembling hands and moaning. When asked she states she just needs a drink of water. Water provided, BS 141. Patient fell back asleep and then woke for breakfast. She takes time to eat her breakfast but appears to enjoy it. After breakfast she falls back asleep. When she wakes she states that she doesnt know how much sleep she got last night and that she usually does not sleep well. Patient states her tells her all the time to get more rest. Patient eats all of her lunch reporting that it was really good. She does not attend groups but only had 2.75hrs sleep the night before. S/I, H/I: none reported A/VH: none reported or observed Sleep: 2.75hrs NOC ADL's: needs assistance Group attendance: no Were meds taken: Yes Any med S/E: None noted or observed. Mental Status Exam Appearance: appropriate Eye contact: direct Behavior: cooperative and friendly Speech: soft tone, periodic pausing Mood: calm Affect: restricted, flat Thought process: Linear Thought Content: no delusional thought content expressed this shift Cognition: Impaired Insight: fair Judgment: Poor Interventions PRN's used: none Therapeutic interventions: 1:1 therapeutic assessment, maintained safe therapeutic milieu, encouraged ADLs, provided active listening with positive feedback, provided medication education as needed, monitored for change in behavior and needed intervention. 1:1 sitter. Restraints/seclusion/emergency medication: None Justification of Continued Inpatient Treatment: Continued therapeutic support and medication management needed to provide stabilization, and prevent decompensation decreasing risk to patient for readmittance to in-patient unit.
[2018-11-20 19:25] VITALS: BP 127/86
[2018-11-20] MEDS: insulin glargine (Lantus) pen - multi-dose SQ SCH (21:00)
[2018-11-20] MEDS: mirtazapine 15mg tablet PO SCH (21:01)
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
[2018-11-21 08:00] VITALS: BP 159/80
[2018-11-21] MEDS: ezetimibe 10mg tablet PO SCH (09:02)
[2018-11-21] MEDS: omega-3 acid ethyl esters 1GM capsule PO SCH (09:02)
[2018-11-21] MEDS: cholecalciferol (vitamin D) 400 unit tablet PO SCH (09:02)
[2018-11-21] MEDS: apixaban 5mg tablet PO SCH ×2 (09:03→20:39)
[2018-11-21] MEDS: calcium carbonate oral susp. 1,250 MG/5 ML (500mg/5ml elem. calcium) PO SCH (09:05)
[2018-11-21] MEDS: atenolol 50mg tablet PO SCH (09:05)
[2018-11-21] MEDS: allopurinol 300 MG tablet PO SCH (14:13)
[2018-11-21] MEDS: magnesium hydroxide 30ml (MOM) UD suspension PO PRN (14:13)
[2018-11-21] MEDS: nystatin 15 GM powder TP SCH ×3 (14:13→20:39)
--- NOTE | 2018-11-21 17:59 | NUR ---
Nursing Progress Note: Legal hold:5250 Report received from nurse Martha PHAM. Why are they here: The patient is 78 year old female who was seen in the ER after being taken there by EMS and her daughter. Her daughter reported that the patient has had increasing psychotic symptoms for the past 5 years. She currently lives with her in [place]. She has a medical history of CVA, TIA, arrhythmia, HTN, Pneumonia, sleep apnea, DM, arthritis, chronic pain, gout, and pacemaker. Assessment What has happened this shift: Patient sat up at the side of her bed for the greater part of the shift, talking with her line of sight staff, Staff reports the content of patient's conversation was "completely appropriate. She talked to me about her grandchildren and their significant others all day." Fluids pushed on patient who presents with dry lips and tongue. Patient oriented X2. Did not remember the year or what events brought her to the hospital. Within line of staff throughout the day for fall risk. S/I, H/I: The patient denies A/VH: THe patient reports seeing things outside of her window Sleep:None ADL's: Requires assistance by staff Group attendance: None Were meds taken: The patient is medication compliant Any med S/E the patient denies Mental Status Exam Appearance: THe patient is resting on her bed in a brightly flowered dress. Eye contact: Fair Behavior: quietly resting on her bed. She is asking assistance to the bathroom. Speech: Monotone, slow deliberate Mood: Underlying irritability and focused on the things in the past Affect: Blunted Thought process: Disorganized, negative Thought Content: Paranoid, delusional Cognition: Confused Insight: Poor Judgment: Poor Interventions PRN's used: None Therapeutic interventions: One to one with the patient to assess severity of thought disorder and for the severity of depressive symptoms and self harm risk. Provided medication education and presented reality. Restraints/seclusion/emergency medication: NONE Justification of Continued Inpatient Treatment: The patient continues to have psychotic symptoms and requires prompting for self care. She is confused.
[2018-11-21 20:00] VITALS: BP 111/67
[2018-11-21] MEDS: mirtazapine 15mg tablet PO SCH (20:39)
[2018-11-21] MEDS: insulin glargine (Lantus) pen - multi-dose SQ SCH (21:00)
--- NOTE | 2018-11-22 02:30 | NUR ---
Nursing Progress Note: Legal hold: 5250 Client on involuntary status for DTS/DTO. Report received from VERO Morillo with use of SBAR Why are they here: Pt reported to Telepsych that she had a revelation that she was having thoughts of killing herself and her . 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 She believes these demons have placed cameras on her ceilings to get nude photos, that they try to poison her food/drinks/toothbrush, they talk from the tv, put snakes on the floor. Pt reported in ER that she feels like a burden to her family and feels like killing herself to rid of the focus of the demons. Pt denies S/I on the unit and states she would never harm herself or her , denies any prior psychiatric admissions. Assessment What has happened this shift: Patient had a visit with her and granddaughter this evening, which she said went well. PT denies any suicidal ideation, she also denies any AH/VH. She does not mention any demons this shift. She is cooperative with assessment and allows telegraphic typewriter repairer to check her blood sugar but refuses her scheduled HS dose of lantus because," I do not take insulin at home."Pt is still on a 1:1. S/I, H/I: none reported A/VH: none reported Sleep: see sleep assessment. ADL's: needs assistance Group attendance: yes Were meds taken: Lantus refused. Any med S/E: None noted or observed. Mental Status Exam Appearance: clean, dressed appropriately Eye contact: fair Behavior: friendly and cooperative Speech: soft tone, periodic pausing Mood: calm Affect: restricted with brightening Thought process: Linear, conversation is easy to follow Thought Content: WNL Cognition: Impaired Insight: fair Judgment: Poor Interventions PRN's used: none Therapeutic interventions: 1:1 therapeutic assessment, maintained safe therapeutic milieu, encouraged ADLs, provided active listening with positive feedback, provided medication education as needed, monitored for change in behavior and needed intervention. 1:1 sitter. Restraints/seclusion/emergency medication: None Justification of Continued Inpatient Treatment: Continued therapeutic support and medication management needed to provide stabilization, and prevent decompensation decreasing risk to patient for readmittance to in-patient unit.
[2018-11-22] MEDS: nystatin 15 GM powder TP SCH ×3 (08:00→21:00)
[2018-11-22 09:08] VITALS: BP 129/78
[2018-11-22] MEDS: ezetimibe 10mg tablet PO SCH (09:08)
[2018-11-22] MEDS: allopurinol 300 MG tablet PO SCH (09:08)
[2018-11-22] MEDS: cholecalciferol (vitamin D) 400 unit tablet PO SCH (09:08)
[2018-11-22] MEDS: apixaban 5mg tablet PO SCH ×2 (09:08→20:47)
[2018-11-22] MEDS: calcium carbonate oral susp. 1,250 MG/5 ML (500mg/5ml elem. calcium) PO SCH (09:10)
[2018-11-22] MEDS: atenolol 50mg tablet PO SCH (09:10)
[2018-11-22] MEDS: omega-3 acid ethyl esters 1GM capsule PO SCH (09:10)
--- NOTE | 2018-11-22 11:32 | NUR ---
1 Addendum: 11/22/18 at 1137 by Marianne Kerr 1:1 DISCHARGE PLANNING DEJON contacted pt's , Inder Armstrong at [phone] to prepare him for discharge planning and pt return home. Inder reports concern of his 's condition and the difficulty of [place]. He reports he is not doing well, which is normal for him, and states he is working with his granddaughters for assistance in moving to [place]. DEJON agreed to contact granddaughters, Palmira and Lety, to discuss what discharge and normalcy will look like upon pt return home. HAMILTON Randall Addendum: 11/22/18 at 1336 by Marianne TAVAREZ Addition to note: DEJON made TC to pt's granddaughter, Lety Armstrong at [phone], to discuss tx, dx, px and steps that could be helpful in supporting grandmother in during her life changes. DEJON encouraged pt to educate herself an family members on the dx of vascular dementia to prepare selves for the next few years as pt's health will likely decline. Lety reports agreement to create a family meeting time for discharge planning, knowing that discharge will likely occur w/in 3-5 days. DEJON provided Lety w/ DEJON Landry's telephone number. HAMILTON Randall
--- NOTE | 2018-11-22 13:28 | NUR ---
Reassessment: Patient is eating well, 100% PO intake. BSS was cancelled d/t nursing report of appropriate swallow. [facility] 11/22. Will continue to follow. Recommendations: 1) Continue with CHO controlled diet 2) Weekly wt Addendum: 11/22/18 at [address] Amended: Links added.
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
[2018-11-22 17:00] VITALS: BP 110/66
[2018-11-22 20:20] VITALS: BP 133/72
[2018-11-22] MEDS: mirtazapine 15mg tablet PO SCH (20:47)
[2018-11-22] MEDS: insulin glargine (Lantus) pen - multi-dose SQ SCH (21:00)
--- NOTE | 2018-11-22 22:39 | NUR ---
Nursing Progress Note: Legal hold: 5250 Client on involuntary status for DTS/DTO. Report received from VERO Morillo with use of SBAR Why are they here: Pt reported to Telepsych that she had a revelation that she was having thoughts of killing herself and her . 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 She believes these demons have placed cameras on her ceilings to get nude photos, that they try to poison her food/drinks/toothbrush, they talk from the tv, put snakes on the floor. Pt reported in ER that she feels like a burden to her family and feels like killing herself to rid of the focus of the demons. Pt denies S/I on the unit and states she would never harm herself or her , denies any prior psychiatric admissions. Assessment What has happened this shift: Patient sits in community room at shift change eating dinner. She had 2 visitors which she stayed engaged with the entire time they were visiting. Pt makes direct eye contact and answers questions appropriately. Pt is cooperative with assessment and speaks clearly. She refuses her HS nystatin and HS lantus. Pt is still on a 1:1. She does not make any delusional statements this shift. S/I, H/I: none reported A/VH: none reported Sleep: see sleep assessment. ADL's: needs assistance Group attendance: yes Were meds taken: Yes Any med S/E: None noted or observed. Mental Status Exam Appearance: clean, dressed appropriately Eye contact: fair Behavior: friendly and cooperative Speech: soft tone, periodic pausing Mood: calm Affect: restricted with brightening Thought process: Linear, conversation is easy to follow Thought Content: WNL Cognition: Impaired Insight: fair Judgment: Poor Interventions PRN's used: none Therapeutic interventions: 1:1 therapeutic assessment, maintained safe therapeutic milieu, encouraged ADLs, provided active listening with positive feedback, provided medication education as needed, monitored for change in behavior and needed intervention. 1:1 sitter. Restraints/seclusion/emergency medication: None Justification of Continued Inpatient Treatment: Continued therapeutic support and medication management needed to provide stabilization, and prevent decompensation decreasing risk to patient for readmittance to in-patient unit.
[2018-11-23 08:00] VITALS: BP 119/85
[2018-11-23] MEDS: nystatin 15 GM powder TP SCH ×3 (08:26→20:41)
[2018-11-23] MEDS: apixaban 5mg tablet PO SCH ×2 (08:27→20:40)
[2018-11-23] MEDS: cholecalciferol (vitamin D) 400 unit tablet PO SCH (08:27)
[2018-11-23] MEDS: ezetimibe 10mg tablet PO SCH (08:27)
[2018-11-23] MEDS: atenolol 50mg tablet PO SCH (08:27)
[2018-11-23] MEDS: calcium carbonate oral susp. 1,250 MG/5 ML (500mg/5ml elem. calcium) PO SCH (08:27)
[2018-11-23] MEDS: omega-3 acid ethyl esters 1GM capsule PO SCH (08:28)
[2018-11-23] MEDS: allopurinol 300 MG tablet PO SCH (10:38)
--- NOTE | 2018-11-23 16:56 | NUR ---
NURSING PROGRESS NOTE Legal hold: 5250 Report received from nurseMandie RN with use of SBAR Why are they here: Pt's daughter brought her to ED reporting that the patient has had increasing psychotic symptoms for the past 5 years. She currently lives with her in [place]. She has a medical history of CVA, TIA, arrhythmias, HTN, Pneumonia, sleep apnea, DM, arthritis, chronic pain, gout, and pacemaker. Assessment What has happened this shift: Patient up using the bathroom with assistance from LANNY Khan. Pt is refusing to have her breakfast in the meal room w/her peers. Encouraged pt to eat w/the others and eventually she went in the dining room to eat but then refused to eat any of her meal. Her gout medication was held until she agreed to eat some yogurt and education provided on the medication allopurinol in regards to eating with this medicine. Pt expressed to this nurse that she is angry with her doctor right now because she wants to go home and he has not spoke to her yet regarding her discharge. Encouraged pt to attend Art Therapy and she went. S/I, H/I: The patient denies A/VH: Denies seeing anything here Sleep: None ADL's: Requires assistance by staff Group attendance: PM group yes Were Meds taken: The patient is medication compliant Any med S/E: patient denies Mental Status Exam Appearance: the same dress she wears to bed she wore throughout the shift Eye contact: Fair Behavior: angry today Speech: Monotone, slow Mood: Underlying irritability and focused on the things in the past Affect: Blunted Thought process: Disorganized, negative Thought Content: Angry w/still being here Cognition: Confused Insight: Poor Judgment: Poor Interventions PRN's used: None Therapeutic interventions: Provided therapeutic communication and active listening, medication administration/education/monitoring, encouraged ADLs, groups and compliance w/medications, assess LOS and gait w/walker for safety. Restraints/seclusion/emergency medication: NONE Justification of Continued Inpatient Treatment: Pt requires therapeutic and safe environment to prevent decompensation and rehospitalization
[2018-11-23] MEDS: mirtazapine 15mg tablet PO SCH (20:40)
[2018-11-23 20:54] VITALS: BP 122/70
--- NOTE | 2018-11-23 21:00 | NUR ---
Accuchecks and HS Lantus discontinued by Dr. Medley.
--- NOTE | 2018-11-24 03:05 | NUR ---
Nursing Progress Note: Legal hold: 5250 Client on involuntary status for GD/DTS Report received from nurse with use of SBAR: VERO Morillo Why are they here: Pt was brought in by EMS and accompanied by her daughter due to pt having visual and auditory hallucinations for the last five years which have worsened. 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 Pt. believes these demons have placed cameras on her ceilings to get nude photos, that they try to poison her food/drinks/toothbrush, they talk from the TV, put snakes on the floor. Pt reported in ER that she feels like a burden to her family and feels like killing herself to rid of the focus of the demons. She has multiple chronic medical issues and is unable to take antipsychotics r/t prolonged QT interval. Pt. remains on close observation level for fall precautions. Assessment What has happened this shift: Pt. up in the Group Room at the beginning of the shift interacting appropriately with others, she receives a visit from her , and reports visit goes well. 1:1 completed later at bedside, pt. is pleasant, cooperative, however reports fatigue which she believes may be r/t HS Remeron. Pt. reluctantly compliant with medication, this newspaper writer will endorse to AM shift and monitor. Pt. denies S/I or any H/A this shift, states, "I never had any." However pt. does admit that she is unsure if she is ready to return home. S/I, H/I: Denies A/VH: Denies Sleep: Pt. reports fatigue which she believes may be r/t HS Remeron. Pt. compliant with medication, this newspaper writer will endorse to AM shift and monitor. ADL's: Requires encouragement and some assistance from staff, continues on close observation r/t fall precautions. Group attendance: Pt. reports she attends some groups, however she is unable to identify any coping mechanisms at this time. Were meds taken: Yes, with some hesitation Any med S/E: Pt. reports increased fatigue which she believes may be r/t HS Remeron. Mental Status Exam Appearance: Neat and appropriately dressed. Eye contact: Good Behavior: Cooperative with fatigue Speech: Soft and responds only to questions Mood: Pleasant Affect: Constricted Thought process: Poverty of thought and blocking r/t mental illness Thought Content: Phobia r/t returning home and per Dr. eMdley, continued perseveration on delusions. Cognition: A&O X4 Insight: Poor to fair Judgment: Fair Interventions PRN's used: None Therapeutic interventions: Provided active listening, maintained a safe and therapeutic environment, provided clear and simple instructions, reoriented to reality as needed, encouraged indipendent performance of ADLs, provided medication education, clarified BS and Lantus orders, and maintained close observation for fall precautions. Restraints/seclusion/emergency medication: N/A Justification of Continued Inpatient Treatment: Pt. continues to require a safe and supportive environment and medication adjustments r/t continued delusions.
[2018-11-24] MEDS: acetaminophen 325mg tablet PO PRN (05:36)
[2018-11-24 05:37] VITALS: BP 141/78
--- NOTE | 2018-11-24 05:38 | NUR ---
Nursing Note: Pt. awakens tearful and report intermittent pain in lower back, V/S WNL. PRN Tylenol administered, will monitor.
[2018-11-24 08:16] VITALS: BP 118/76
[2018-11-24] MEDS: omega-3 acid ethyl esters 1GM capsule PO SCH (08:28)
[2018-11-24] MEDS: ezetimibe 10mg tablet PO SCH (08:28)
[2018-11-24] MEDS: apixaban 5mg tablet PO SCH ×2 (08:28→21:25)
[2018-11-24] MEDS: cholecalciferol (vitamin D) 400 unit tablet PO SCH (08:28)
[2018-11-24] MEDS: allopurinol 300 MG tablet PO SCH (08:29)
[2018-11-24] MEDS: atenolol 50mg tablet PO SCH (08:29)
[2018-11-24] MEDS: nystatin 15 GM powder TP SCH ×3 (08:29→21:25)
[2018-11-24] MEDS: calcium carbonate oral susp. 1,250 MG/5 ML (500mg/5ml elem. calcium) PO SCH (11:00)
--- NOTE | 2018-11-24 16:40 | NUR ---
NURSING PROGRESS NOTE Legal hold: 5250 Report received from nurseMandie RN with use of SBAR Why are they here: Pt's daughter brought her to ED reporting that the patient has had increasing psychotic symptoms for the past 5 years. She currently lives with her in [place]. She has a medical history of CVA, TIA, arrhythmias, HTN, Pneumonia, sleep apnea, DM, arthritis, chronic pain, gout, and pacemaker. Assessment What has happened this shift:Patient was awake at change of shift and up in Community Room for breakfast (100%). Patient was cooperative and calm. Patient has depressed affect. Patient denies seeing any demons here at the hospital. Patient states she only sees them at her home which is good because last week patient saw them daily out the window or in her room (So possibly she won't see them at home). patient was moved to a warmer room and appears content. Patient took a shower today. S/I, H/I: The patient denies A/VH: Denies seeing anything here Sleep: naps ADL's: Requires assistance by staff Group attendance: No Were Meds taken: The patient is medication compliant Any med S/E: patient denies Mental Status Exam Appearance: Patient is clean and neat after her shower. Eye contact: Fair Behavior: Calm and cooperative Speech: Monotone, slow Mood: Depressed Affect: Blunted Thought process: Disorganized Thought Content: Afraid to go home. Cognition: Slightly Confused Insight: Poor Judgment: Poor Interventions PRN's used: None Therapeutic interventions: Provided therapeutic communication and active listening, medication administration/education/monitoring, encouraged ADLs, groups and compliance w/medications, assess LOS and gait w/walker for safety. Restraints/seclusion/emergency medication: NONE Justification of Continued Inpatient Treatment: Pt requires therapeutic and safe environment to prevent decompensation and rehospitalization
[2018-11-24 19:00] VITALS: BP 121/82
[2018-11-24] MEDS: mirtazapine 15mg tablet PO SCH (21:25)
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
[2018-11-25] MEDS: omega-3 acid ethyl esters 1GM capsule PO SCH (07:50)
[2018-11-25] MEDS: ezetimibe 10mg tablet PO SCH (07:50)
[2018-11-25] MEDS: apixaban 5mg tablet PO SCH ×2 (07:51→21:14)
[2018-11-25] MEDS: atenolol 50mg tablet PO SCH (07:51)
[2018-11-25] MEDS: calcium carbonate oral susp. 1,250 MG/5 ML (500mg/5ml elem. calcium) PO SCH (07:51)
[2018-11-25] MEDS: cholecalciferol (vitamin D) 400 unit tablet PO SCH (07:51)
[2018-11-25] MEDS: allopurinol 300 MG tablet PO SCH (07:51)
[2018-11-25 08:00] VITALS: BP 152/94
[2018-11-25] MEDS: nystatin 15 GM powder TP SCH ×3 (08:00→21:00)
--- NOTE | 2018-11-25 17:34 | NUR ---
NURSING PROGRESS NOTE Legal hold: 5250 Report received from nurse Lizet Carlson RN with use of SBAR Why are they here: Pt's daughter brought her to ED reporting that the patient has had increasing psychotic symptoms for the past 5 years. She currently lives with her in [place]. She has a medical history of CVA, TIA, arrhythmias, HTN, Pneumonia, sleep apnea, DM, arthritis, chronic pain, gout, and pacemaker. Assessment What has happened this shift: Patient remains on line of sight. Patient up for all meals with a walker and staff assist. Outside of meal time, patient returned to bed and fell asleep. Patient disorganized to situation at times and also becomes irritable and refused nursing assessment and refused some of the care offered. Patient more agreeable when approached by a female staff and allowed her female healthcare interpreter to complete all hygiene needs. Possible manifestation of her delusional believe that demons are around. Will continue to provide safe environment. S/I, H/I: The patient denies A/VH: Denies seeing anything here Sleep: naps ADL's: Requires assistance by staff Group attendance: No Were Meds taken: The patient is medication compliant Any med S/E: patient denies Mental Status Exam Appearance: Patient is clean and neat after her shower. Eye contact: Fair Behavior: Calm and cooperative Speech: Monotone, slow Mood: Depressed Affect: Blunted Thought process: Disorganized Thought Content: Afraid to go home. Cognition: Slightly Confused Insight: Poor Judgment: Poor Interventions PRN's used: None Therapeutic interventions: Provided therapeutic communication and active listening, medication administration/education/monitoring, encouraged ADLs, groups and compliance w/medications, assess LOS and gait w/walker for safety. Restraints/seclusion/emergency medication: NONE Justification of Continued Inpatient Treatment: Pt requires therapeutic and safe environment to prevent decompensation and rehospitalization
[2018-11-25 19:00] VITALS: BP 126/71
[2018-11-25] MEDS: mirtazapine 15mg tablet PO SCH (21:14)
[2018-11-25] MEDS: magnesium hydroxide 30ml (MOM) UD suspension PO PRN (21:22)
[2018-11-25] MEDS: mag hydrox/Alum hydrox/simeth 30ml oral suspension PO PRN (22:10)
--- NOTE | 2018-11-25 23:08 | NUR ---
Pt has a pacemaker TINY Addendum: 11/25/18 at 2309 by Tiffanie New RN Amended: Links added.
--- NOTE | 2018-11-26 01:39 | NUR ---
Nursing Progress Note: Legal hold: 5250 Client on involuntary status for GD/DTS Report received from nurse with use of SBAR: JAYLEEN Alford Why are they here: Pt was brought in by EMS and accompanied by her daughter due to pt having visual and auditory hallucinations for the last five years which have worsened. 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 Pt. believes these demons have placed cameras on her ceilings to get nude photos, that they try to poison her food/drinks/toothbrush, they talk from the TV, put snakes on the floor. Pt reported in ER that she feels like a burden to her family and feels like killing herself to rid of the focus of the demons. She has multiple chronic medical issues and is unable to take antipsychotics r/t prolonged QT interval. Pt. remains on close observation level for fall precautions. Assessment What has happened this shift: Pt up in group room at shift change. Pt waiting for visit from . Went and introduced myself, pt asked if I would please not leave her alone with all the men. (There were other patients in group room). Explained to patient that she would not be alone, she had a sitter with her and I would be in to check on her. Pt states she had a good visit with her . 1:1 assessment performed at bedside. Pt medication compliant. Pt c/o that her last BM was hard and requested something. MOM was administered. When asked about VH, pt said "you mean the demons." Pt states she only sees them at home and they followed her to [facility] when she was there for rehab. Pt reports she feel safe here at [facility]. Pt realizes that no one else can see them. Pt states they do not talk with their mouths only with their hands. Pt states they understand Polish. Pt states they don't hurt her, they just make a lot of noise and cause commotion. Pt denies SI, AH. Assessed pannus area for continued therapy with Nystatin powder. L>R there is still some redness noted. Also noted was a small skin tear under the left side. Pt states it is sore. Area was cleaned and Nystatin powder applied. Will continue to monitor. S/I, H/I: None reported or observed A/VH: None reported or observed. Pt sees sai at home, but not here at [facility] Sleep: Pt sleeping comfortably ADL's: Requires encouragement and some assistance from staff, continues on LOS Group attendance: cattle shipper, no group Were meds taken: Pt medication compliant Any med S/E: None reported or observed Mental Status Exam Appearance: Neat and appropriately dressed. Eye contact: Good Behavior: Cooperative Speech: Soft, slow Mood: Happy, "good visit with " Affect: Flat Thought process: Poverty of thought Thought Content: Seeing demrick at home, but not here at [facility] Cognition: Slightly confused Insight: Poor to fair Judgment: Fair Interventions PRN's used: Maalox for heartburn, MOM- hard stool Therapeutic interventions: Provided active listening, maintained a safe and therapeutic environment, provided clear and simple instructions, reoriented to reality as needed, encouraged independent performance of ADLs, provided medication education, provided a quiet environment to promote sleep, and maintained close observation for fall precautions. Restraints/seclusion/emergency medication: N/A Justification of Continued Inpatient Treatment: Pt. continues to require a safe and supportive environment and medication adjustments r/t continued delusions.
[2018-11-26 08:00] VITALS: BP 150/90
[2018-11-26] MEDS: nystatin 15 GM powder TP SCH ×3 (08:00→20:25)
[2018-11-26] MEDS: omega-3 acid ethyl esters 1GM capsule PO SCH (08:11)
[2018-11-26] MEDS: cholecalciferol (vitamin D) 400 unit tablet PO SCH (08:11)
[2018-11-26] MEDS: apixaban 5mg tablet PO SCH ×2 (08:11→20:25)
[2018-11-26] MEDS: ezetimibe 10mg tablet PO SCH (08:11)
[2018-11-26] MEDS: calcium carbonate oral susp. 1,250 MG/5 ML (500mg/5ml elem. calcium) PO SCH (08:12)
[2018-11-26] MEDS: atenolol 50mg tablet PO SCH (08:12)
[2018-11-26] MEDS: allopurinol 300 MG tablet PO SCH (09:36)
[2018-11-26] MEDS: acetaminophen 325mg tablet PO PRN (09:53)
--- NOTE | 2018-11-26 17:45 | NUR ---
Nursing Progress Note: Legal hold: 5250 Client on involuntary status for GD/DTS Report received from nurse with use of SBAR: JAYLEEN Lopez Why are they here: Pt was brought in by EMS and accompanied by her daughter due to pt having visual and auditory hallucinations for the last five years which have worsened. 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 Pt. believes these demons have placed cameras on her ceilings to get nude photos, that they try to poison her food/drinks/toothbrush, they talk from the TV, put snakes on the floor. Pt reported in ER that she feels like a burden to her family and feels like killing herself to rid of the focus of the demons. She has multiple chronic medical issues and is unable to take antipsychotics r/t prolonged QT interval. Pt. remains on close observation level for fall precautions. Assessment What has happened this shift: Pt. asleep at beginning of shift. Pt. is on LOS for fall precautions. Pt. brought to day room in wheel chair for breakfast and medications. Pt. reports buttock pain of 5/10. Pt. given Tylenol 650mg po. Pt. reports she feels good today, stating, "I've been sad enough in the past, it's time to feel happy now". Pt reports she does not see demons here, but says she sees them in her home, that they do not speak, but only make hand motions to communicate. Pt. states, "I tell the demons to go to hell". Pt. is calm, cooperative, and pleasent. Pt. seen conversing with her roomate. Pt. seen smiling. Pt. showered. Pt. withdrawn this afternoon. Pt. showered today. Pt. reports she had bowel movement yesterday. S/I, H/I: None reported or observed A/VH: None reported or observed. Pt sees demons at home, but not here at [facility] Sleep: Pt sleeping comfortably ADL's: Requires encouragement and some assistance from staff, continues on LOS. Pt. showered today. Group attendance: None Were meds taken: Pt medication compliant Any med S/E: None reported or observed Mental Status Exam Appearance: Neat and appropriately dressed. Eye contact: Good Behavior: Cooperative Speech: Soft, slow Mood: Pt. is more optimistic seen talking with roomate and staff. Affect: Flat Thought process: Poverty of thought Thought Content: Seeing demons at home, but not here at [facility] Cognition: Slightly confused Insight: Poor to fair Judgment: Fair Interventions PRN's used: None Therapeutic interventions: Provided active listening, maintained a safe and therapeutic environment, provided clear and simple instructions, reoriented to reality as needed, encouraged independent performance of ADLs, provided medication education, provided a quiet environment to promote sleep, and maintained close observation for fall precautions. Restraints/seclusion/emergency medication: N/A Justification of Continued Inpatient Treatment: Pt. continues to require a safe and supportive environment and medication adjustments r/t continued delusions.
[2018-11-26 19:00] VITALS: BP 125/75
[2018-11-26] MEDS: mirtazapine 15mg tablet PO SCH (20:25)
--- NOTE | 2018-11-27 02:59 | NUR ---
Nursing Progress Note: Legal hold: 5250 11/28 Client on involuntary status for GD/DTS Report received from nurse with use of SBAR: JAYLEEN Alford Why are they here: Pt was brought in by EMS and accompanied by her daughter due to pt having visual and auditory hallucinations for the last five years which have worsened. 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 Pt. believes these demons have placed cameras on her ceilings to get nude photos, that they try to poison her food/drinks/toothbrush, they talk from the TV, put snakes on the floor. Pt reported in ER that she feels like a burden to her family and feels like killing herself to rid of the focus of the demons. She has multiple chronic medical issues and is unable to take antipsychotics r/t prolonged QT interval. Pt. remains on close observation level for fall precautions. Assessment What has happened this shift: Pt up in group room at shift change. Pt was brought back to room after HS snack. 1:1 assessment was performed at bedside. Pt was cooperative and pleasant. Pt states she is feeling disappointed because her granddaughter didn't come to visit [facility]. Pt states her and her are at a wedding some where. Pt was medication compliant. Pt didn't refer to the demons at all this shift, except for saying I see them at home. Pt was withdrawn this evening, this commercial underwriter believes it is r/t the missed visit by her granddaughter. Applied Nystatin cream to pannus. Continuing to monitor the small skin tear under pt's pannus. Pt continues on the LOS for fall precautions. Pt states her BM have been hard and requests a stool softener. Pt states she has had MOM x3 with no effect. S/I, H/I: None reported or observed A/VH: Pt sees demons at home, but not here at [facility] Sleep: Pt sleeping comfortably - observed pt intermittently talking in her sleep ADL's: Requires encouragement and some assistance from staff, continues on LOS Group attendance: material handler 2nd shift, no group Were meds taken: Pt medication compliant Any med S/E: None reported or observed Mental Status Exam Appearance: Neat and appropriately dressed in her clothes Eye contact: Good Behavior: Cooperative Speech: Soft, slow Mood: Down - granddaughter didn't come to visit Affect: Flat Thought process: Poverty of thought Thought Content: Pt disappointed her granddaughter didn't come to visit Cognition: Slightly confused Insight: Poor Judgment: Fair Interventions PRN's used: None Therapeutic interventions: Provided active listening, maintained a safe and therapeutic environment, provided clear and simple instructions, reoriented to reality as needed, encouraged independent performance of ADL's, provided medication education, provided a quiet environment to promote sleep, and maintained close observation for fall precautions. Restraints/seclusion/emergency medication: N/A Justification of Continued Inpatient Treatment: Pt. continues to require a safe and supportive environment and medication adjustments r/t continued delusions.
[2018-11-27] MEDS: calcium carbonate oral susp. 1,250 MG/5 ML (500mg/5ml elem. calcium) PO SCH (07:50)
[2018-11-27] MEDS: apixaban 5mg tablet PO SCH ×2 (07:51→20:15)
[2018-11-27] MEDS: cholecalciferol (vitamin D) 400 unit tablet PO SCH (07:51)
[2018-11-27] MEDS: atenolol 50mg tablet PO SCH (07:52)
[2018-11-27] MEDS: omega-3 acid ethyl esters 1GM capsule PO SCH (07:52)
[2018-11-27] MEDS: ezetimibe 10mg tablet PO SCH (07:53)
[2018-11-27] MEDS: allopurinol 300 MG tablet PO SCH (07:53)
[2018-11-27 08:00] VITALS: BP 130/78
[2018-11-27] MEDS: nystatin 15 GM powder TP SCH ×3 (08:00→21:00)
--- NOTE | 2018-11-27 16:53 | NUR ---
Nursing Progress Note: Legal hold: 5250 Client on involuntary status for GD/DTS Report received from nurse with use of SBAR: Jessica PHAM Why are they here: Pt was brought in by EMS and accompanied by her daughter due to pt having visual and auditory hallucinations for the last five years which have worsened. 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 Pt. believes these demons have placed cameras on her ceilings to get nude photos, that they try to poison her food/drinks/toothbrush, they talk from the TV, put snakes on the floor. Pt reported in ER that she feels like a burden to her family and feels like killing herself to rid of the focus of the demons. She has multiple chronic medical issues and is unable to take antipsychotics r/t prolonged QT interval. Pt. remains on close observation level for fall precautions. Assessment What has happened this shift: Received Pt asleep at beginning of shift w/o distress. Pt. Pt remains on LOS for fall precautions. Pt. given medications in her room and brought to day room in wheel chair for breakfast. Pt. reported no pain issues today. Pt. reports she feels good today, as we engaged in a lengthy conversation about mothering, her children and past events in her life. Pt reports she does not see demons here. Pt. is calm, cooperative, and pleasant. Pt. enjoys conversing with her roommate. Pt. She spent most of morning in group room with roommate and AM group. In chair in room for most of afternoon. Pt. reports having a small BM today and that it was dry. Encouraged water intake. S/I, H/I: None reported or observed A/VH: None reported or observed. Pt sees demons at home, but not here at [facility] Sleep: Pt sleeping comfortably ADL's: Requires encouragement and some assistance from staff, continues on LOS. Pt. showered today. Group attendance: None Were meds taken: Pt medication compliant Any med S/E: None reported or observed Mental Status Exam Appearance: Neat and appropriately dressed. Eye contact: Good Behavior: Cooperative Speech: Soft, slow Mood: Pleasant Affect: Flat Thought process: Tracking well Thought Content: Enjoyed talking about children/family Cognition: Slightly confused Insight: Poor to fair Judgment: Fair Interventions PRN's used: None Therapeutic interventions: Provided active listening, maintained a safe and therapeutic environment, provided clear and simple instructions, reoriented to reality as needed, encouraged independent performance of ADLs, provided medication education, provided a quiet environment to promote sleep, and maintained close observation for fall precautions. Restraints/seclusion/emergency medication: N/A Justification of Continued Inpatient Treatment: Pt. continues to require a safe and supportive environment and medication adjustments r/t continued delusions.
[2018-11-27 19:28] VITALS: BP 137/67
[2018-11-27] MEDS: mirtazapine 15mg tablet PO SCH (20:14)
--- NOTE | 2018-11-28 02:55 | NUR ---
Nursing Progress Note: Legal hold: 5250 Client on involuntary status for DTS/DTO. Report received from VERO Alford with use of SBAR Why are they here: Pt reported to [facility] that she had a revelation that she was having thoughts of killing herself and her . 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 She believes these demons have placed cameras on her ceilings to get nude photos, that they try to poison her food/drinks/toothbrush, they talk from the tv, put snakes on the floor. Pt reported in ER that she feels like a burden to her family and feels like killing herself to rid of the focus of the demons. Pt denies S/I on the unit and states she would never harm herself or her , denies any prior psychiatric admissions. Assessment What has happened this shift: Patient sits in community room at shift change eating dinner. She had 2 visitors which she stayed engaged with the entire time they were visiting. Pt makes direct eye contact and answers questions appropriately. Pt is cooperative with assessment and speaks clearly. Pt is still on a 1:1. She talks about the demons she saw for years, and how the new "batch" of demons are different, they don't do bad things to her. When asked were she is seeing these demons she says, "at my house." When asked if she is seeing demons here in the hospital she says, "no I don't see them here." S/I, H/I: none reported A/VH: none reported Sleep: see sleep assessment. ADL's: needs assistance Group attendance: yes Were meds taken: Yes Any med S/E: None noted or observed. Mental Status Exam Appearance: clean, dressed appropriately Eye contact: fair Behavior: friendly and cooperative Speech: soft tone, periodic pausing Mood: calm Affect: restricted with brightening Thought process: Linear, conversation is easy to follow Thought Content: WNL Cognition: Impaired Insight: fair Judgment: Poor Interventions PRN's used: none Therapeutic interventions: 1:1 therapeutic assessment, maintained safe therapeutic milieu, encouraged ADLs, provided active listening with positive feedback, provided medication education as needed, monitored for change in behavior and needed intervention. 1:1 sitter. Restraints/seclusion/emergency medication: None Justification of Continued Inpatient Treatment: Continued therapeutic support and medication management needed to provide stabilization, and prevent decompensation decreasing risk to patient for readmittance to in-patient unit.
[2018-11-28] MEDS: apixaban 5mg tablet PO SCH ×2 (08:03→20:46)
[2018-11-28] MEDS: ezetimibe 10mg tablet PO SCH (08:03)
[2018-11-28] MEDS: calcium carbonate oral susp. 1,250 MG/5 ML (500mg/5ml elem. calcium) PO SCH (08:03)
[2018-11-28] MEDS: omega-3 acid ethyl esters 1GM capsule PO SCH (08:03)
[2018-11-28] MEDS: nystatin 15 GM powder TP SCH ×3 (08:03→20:46)
[2018-11-28] MEDS: cholecalciferol (vitamin D) 400 unit tablet PO SCH (08:04)
[2018-11-28] MEDS: atenolol 50mg tablet PO SCH (08:04)
[2018-11-28 08:16] VITALS: BP 127/75
[2018-11-28] MEDS: allopurinol 300 MG tablet PO SCH (10:30)
--- NOTE | 2018-11-28 11:06 | NUR ---
1:1 DISCHARGE PLANNING SW contacted pt's , Inder Armstrong at [phone], and pt's granddaughter Lety Armstrong at [phone] to discuss pt discharge. Inder and Lety have agreed to pick pt up at 15:00 hours on 11/29/2018. Marianne Kerr, ACSW
--- NOTE | 2018-11-28 14:47 | NUR ---
Nursing Progress Note: Legal hold:5250 Report received from nurse Bela PHAM. Why are they here: The patient is 78 year old female who was seen in the ER after being taken there by EMS and her daughter. Her daughter reported that the patient has had increasing psychotic symptoms for the past 5 years. She currently lives with her in [place]. She has a medical history of CVA, TIA, arrhythmia, HTN, Pneumonia, sleep apnea, DM, arthritis, chronic pain, gout, and pacemaker. Assessment What has happened this shift: Patient was showered and rosalio care given. Fungal areas under pannus and in groin addressed with Nystatin powder. Wheelrd to dining room for meals. Dr. Medley in to see patient and informed her she will be discharged tomorrow. Pt. happy with this information. Looking forward to moving to [place] to be near granddaughter. S/I, H/I: The patient denies A/VH: Denies seeing demons outside the window of her room Sleep:None ADL's: Requires assistance by staff Group attendance: None Were meds taken: The patient is medication compliant Any med S/E the patient denies Mental Status Exam Appearance: THe patient is resting on her bed in a brightly flowered dress. Eye contact: Fair Behavior: quietly resting on her bed. She is asking for assistance to the bathroom. Speech: Monotone, slow deliberate Mood: Underlying irritability and focused on the things in the past Affect: Blunted Thought process: Disorganized, negative Thought Content: Paranoid, delusional Cognition: Confused Insight: Poor Judgment: Poor Interventions PRN's used: None Therapeutic interventions: One to one with the patient to assess severity of thought disorder and for the severity of depressive symptoms and self harm risk. Provided medication education and presented reality. Restraints/seclusion/emergency medication: NONE Justification of Continued Inpatient Treatment: The patient continues to have psychotic symptoms and requires prompting for self care. She is confused.
[2018-11-28] MEDS: mirtazapine 15mg tablet PO SCH (20:46)
[2018-11-28 20:47] VITALS: BP 114/63
--- NOTE | 2018-11-29 03:30 | NUR ---
Nursing Progress Note: Legal hold:5250 Report received from nurse Prashanth PHAM. Why are they here: The patient is 78 year old female who was seen in the ER after being taken there by EMS and her daughter. Her daughter reported that the patient has had increasing psychotic symptoms for the past 5 years. She currently lives with her in [place]. She has a medical history of CVA, TIA, arrhythmia, HTN, Pneumonia, sleep apnea, DM, arthritis, chronic pain, gout, and pacemaker. Assessment What has happened this shift: Pt was in group room having dinner at change of shift. 1:1 assessment completed at bedside. Pt states she had a good day and plans to go home w/her tomorrow. Pt states "Im not hearing voices, they are talking w/their hands." I asked who is talking? pt states the demons, but they're only at my house and we are selling the house and moving to [place]. Pt states she was told she was talking in her sleep last night, states she felt rested but was concerned she was talking in her sleep. Applied nystatin powder underneath pannus and groin folds, appears improved, still quite a bit of redness on left side. S/I, H/I: Denies A/VH: states demons dont talk and she saw them using their hands but states demons are only at her house. Sleep:None ADL's: Requires assistance by staff Group attendance: None Were meds taken: pt is med compliant Any med S/E: none reported or observed Mental Status Exam Appearance: adequately groomed and dressed, wearing floral print dress Eye contact: good Behavior: ate meal in the group room and socializing w/roommate before going to bed Speech: Monotone, slow deliberate Mood: Underlying irritability and focused on the things in the past Affect: Blunted Thought process: Disorganized, Thought Content: Paranoid, delusional Cognition: impaired, a/ox2 Insight: Poor Judgment: Poor Interventions PRN's used: None Therapeutic interventions: One to one with the patient to assess severity of thought disorder and for the severity of depressive symptoms and self harm risk. Provided medication education and presented reality. Restraints/seclusion/emergency medication: NONE Justification of Continued Inpatient Treatment: The patient continues to have psychotic symptoms and requires prompting for self care. She is confused.
[2018-11-29 08:00] VITALS: BP 168/95
[2018-11-29] MEDS: omega-3 acid ethyl esters 1GM capsule PO SCH (08:05)
[2018-11-29] MEDS: apixaban 5mg tablet PO SCH (08:05)
[2018-11-29] MEDS: calcium carbonate oral susp. 1,250 MG/5 ML (500mg/5ml elem. calcium) PO SCH (08:05)
[2018-11-29] MEDS: allopurinol 300 MG tablet PO SCH (08:05)
[2018-11-29] MEDS: nystatin 15 GM powder TP SCH ×2 (08:05→13:24)
[2018-11-29 08:07] VITALS: BP_SYST 168
[2018-11-29] MEDS: ezetimibe 10mg tablet PO SCH (08:07)
[2018-11-29] MEDS: cholecalciferol (vitamin D) 400 unit tablet PO SCH (08:07)
[2018-11-29] MEDS: atenolol 50mg tablet PO SCH (08:07)
[2018-11-29] MEDS ORDERED: MIRT30TA8 PO (10:37)
[2018-11-29] MEDS ORDERED: ATEN50TA41 PO (10:37)
--- NOTE | 2018-11-29 14:38 | NUR ---
Nursing Progress Note: Legal hold:7510 Report received from charge nurse Prashanth PHAM. Why are they here: The patient is 78 year old female who was seen in the ER after being taken there by EMS and her daughter. Her daughter reported that the patient has had increasing psychotic symptoms for the past 5 years. She currently lives with her in [place]. She has a medical history of CVA, TIA, arrhythmia, HTN, Pneumonia, sleep apnea, DM, arthritis, chronic pain, gout, and pacemaker. Assessment What has happened this shift: Pt denies depression, SI/HI/AH/VH, states that she has not seen the demons since she got here and that they never spoke but used their hands to talk. Pt up for meals in w/c, eating nearly 100%, Nystatin powder applied to rash areas. No unsafe behaviors noted. S/I, H/I: Pt denies A/VH: Pt denies Sleep: Sleeping better at noc per report ADL's: Min assist Group attendance: Pt declined Were meds taken: Yes Any med S/E: none reported or observed Mental Status Exam Appearance: adequately groomed and dressed, wearing floral print dress Eye contact: good Behavior: Pleasant, cooperative Speech: clear, soft spoken but audible Mood: Good Affect: Blunted Thought process: Linear Thought Content: Focused on discharge, happy to be going with family Cognition: A/O X 3 Insight: fair Judgment: fair Interventions PRN's used: None Therapeutic interventions: 1:1 assessment, medication administration/education/monitoring, therapeutic conversation, encouragement to participate in ADLs, Q 15 min checks Restraints/seclusion/emergency medication: NONE Justification of Continued Inpatient Treatment: Pt is being discharged home with family today. Addendum: 11/29/18 at 1536 by Siobhan Moura RN (Lee) Pt continues on LOS.
--- NOTE | 2018-11-29 16:18 | NUR ---
DISCHARGE NOTE: Pt discharged home with family at 1605. Granddaughter here to pick her up, wheeled off the unit in w/c accompanied by family and PCT. RX's filled and delivered by [facility], discharge instructions, medications, and follow care reviewed, pt and family expressed understanding, all belongings returned. Pictures of rashes taken and placed in chart.
== END 2018-11-29 16:05 | disposition home or self-care (01) | DRG 885 ==
LOC: ADULT MH 21:10
PROVIDERS: ADMIT Psychiatry & Neurology Psychiatry; ATTEND Family Medicine
DX: F29 Unspecified psychosis not due to a substance or known physiological condition (principal); E78.00 Pure hypercholesterolemia, unspecified; E78.5 Hyperlipidemia, unspecified; F32.9 Major depressive disorder, single episode, unspecified; H54.7 Unspecified visual loss; I10 Essential (primary) hypertension; G89.29 Other chronic pain; I45.81 Long QT syndrome; F03.90 Unspecified dementia, unspecified severity, without behavioral disturbance, psychotic disturbance, mood disturbance, and anxiety; G47.33 Obstructive sleep apnea (adult) (pediatric); I25.10 Atherosclerotic heart disease of native coronary artery without angina pectoris; W18.39XA Other fall on same level, initial encounter; M10.9 Gout, unspecified; Z79.01 Long term (current) use of anticoagulants; Z80.9 Family history of malignant neoplasm, unspecified; Z88.8 Allergy status to other drugs, medicaments and biological substances; Z88.1 Allergy status to other antibiotic agents; Z79.899 Other long term (current) drug therapy; Z79.4 Long term (current) use of insulin; Z86.73 Personal history of transient ischemic attack (TIA), and cerebral infarction without residual deficits; Z95.0 Presence of cardiac pacemaker; Y93.89 Activity, other specified; Y92.89 Other specified places as the place of occurrence of the external cause; Y99.8 Other external cause status; Y92.238 Other place in hospital as the place of occurrence of the external cause
CPT/HCPCS: 36415; 73130; 73502; 80061; 82948; 83036; 87070; 93005; J1815